=== PATIENT | female | born 1985 | race Caucasian/White ===

== ENCOUNTER 2021-05-19 13:53 | Outpatient (CLI) | payer OTHER, SELFPAY ==
--- NOTE | 2021-05-19 14:15 | US_ITS ---
WS: [id number] EARLY OBSTETRICAL ULTRASOUND (<14 WEEKS). HISTORY: R10.31 - Right lower quadrant pain COMPARISON: None available. Single intrauterine gestational sac is identified. Cardiac activity at 122 BPM. [place]-rump length raúl sures 0.4 cm which corresponds to a gestation of 6w1d. Normal-appearing yolk sac and amnion demonstra ayesha. No subchorionic hemorrhage. No free fluid. RIGHT ovary contains 2 cysts. The largest cyst measures 3.9 x 2.7 x 3.3 cm. No solid mass. Normal vas cularity. LEFT ovary is normal with normal vascularity. No solid mass. US/US OB <=14 wk fetus w transvag IMPRESSION: 1. Single intrauterine gestation of 6 weeks 1 day with an EDC of 01/11/2022. 2. RIGHT ovarian cysts. The largest cyst measures 3.9 x 2.7 x 3.3 cm. Normal v ascularity within the RIGHT ovary.
== END 2021-05-19 13:54 | disposition home or self-care (01) ==
PROVIDERS: PCP Pediatrics; Visit Provider Nurse Practitioner Women's Health
DX: R10.31 Right lower quadrant pain (principal); Z78.9 Other specified health status; N92.6 Irregular menstruation, unspecified; O09.91 Supervision of high risk pregnancy, unspecified, first trimester; Z3A.01 Less than 8 weeks gestation of pregnancy; N83.201 Unspecified ovarian cyst, right side
CPT/HCPCS: 76801; 76817; 81025; 84702; 85025; 86850; 86900

== ENCOUNTER 2021-06-10 10:21 | Emergency (ER) | payer OTHER, SELFPAY ==
--- NOTE | 2021-06-10 10:28 | W.ED.PREGNAN ---
HPI - General: Chief complaint: Vaginal Bleeding Stated complaint: 9 WEEKS PREG WITH SPOTTING, PAIN IN LOWER ABD Time Seen by Provider: 06/10/21 10:26 Source: patient Mode of arrival: ambulatory Limitations: no limitations History of Present Illness: HPI Narrative: Patient is a 35-year-old female at approximately 9 weeks here for concerns of some right lower abdominal/pelvic pain and vaginal spotting. Intrauterine has been confirmed through the women's health clinic. Patient states 2 days ago she slipped at work (no fall) and noticed a small amount of pain to her right lower pelvis following that. She states this morning she tried to get out of bed and had increasing discomfort and also noticed a small amount of bright red blood when she wiped. She has not noticed any clots/tissue or blood in the toilet or on her underwear. She does not complain of any pelvic or abdominal cramping. No vaginal discharge/odor. No leaking fluid. She states she did have sexual intercourse yesterday. MD Complaint: vaginal bleeding and other (R lower pelvic pain) Onset (ago): day(s) (initially began ) Pain Consistency: constant Location: pelvis Severity: mild Severity scale (1-10): 4 Exacerbating factors: movement and other (walking) Vaginal discharge: none Vaginal bleeding: light Patient : Yes Associated symptoms: Deny dysuria, headache(s), malaise, nausea or vomiting Review of Systems Const: Denies: fever(s), chills, body aches, fatigue or malaise Card: Denies: chest pain Resp: Denies: dyspnea GI: Denies: nausea, vomiting or diarrhea : Reports: pelvic pain; Denies: flank pain, difficulty voiding, dysuria, urinary frequency, urinary urgency or urinary hesitancy Musc: Denies: neck pain, back pain, extremity pain, extremity swelling, joint pain or joint swelling Skin/Breast: Denies: rash Neuro: Denies: headache(s) or dizziness PFSH ED PFSH: Medical History No pertinent past medical history neghx: thyroid, dvt/pe PCP: [facility] in [place] [facility] Surgical History History of appendectomy History of section 2005-- Emergent primary due to malpresentation; performed [facility] 2019: Repeat; performed in [facility] History of cholecystectomy Family History Brother Diabetes Hypertension Mother Diabetes Hypertension Father Diabetes Hypertension Social History Smoking and tobacco status: former smoker Quit status (tobacco): has quit using tobacco Second hand smoke exposure: No Alcohol intake: never Lives independently: Yes Household members: significant other Marital status: Single Current occupational status: employed Current occupation: [employer] History of recent travel: No Sexually active: Yes Current gender identity: Female Physical Exam Const: COMMON NORMALS: no acute distress, patient oriented x3, no limitations and alert GENERAL APPEARANCE: cooperative NUTRITIONAL APPEARANCE: obese ORIENTATION/CONSCIOUSNESS: Yes awake, Yes oriented to person, Yes oriented to place and Yes oriented to time HENMT: COMMON NORMALS: normocephalic and atraumatic HEAD & SCALP: normocephalic and atraumatic Resp: COMMON NORMALS: normal respiratory effort and clear to auscultation bilaterally AUSCULTATION: clear to auscultation bilaterally Cardio: COMMON NORMALS: regular rate and regular rhythm RATE: regular rate RHYTHM: regular rhythm GI: COMMON NORMALS: Normal to inspection, nondistended, normoactive bowel sounds present, Soft to palpation, No hepatosplenomegaly present and no masses PALPATION: Yes Soft to palpation, Yes Tenderness to palpation present (GI) (R lower pelvis) and Yes No hepatosplenomegaly present : COMMON NORMALS: Yes no CVA tenderness BLADDER/KIDNEY EXAM: Yes no CVA tenderness Back/Pelvis: COMMON NORMALS: no CVA tenderness Extremity: COMMON NORMALS: normal to inspection, no calf tenderness and no pedal edema Neuro: COMMON NORMALS: patient oriented x3 SENSORIUM/ORIENTATION: Yes alert, Yes oriented to person, Yes oriented to place and Yes oriented to time Skin: COMMON NORMALS: no rashes or lesions noted GENERAL SKIN EXAM: no rashes or lesions noted TRAUMA: no lacerations or abrasions Course Vital Signs: Vital signs: Vital Signs Temperature 98.3 F 06/10/21 11:05 Pulse Rate 97 06/10/21 11:05 Respiratory Rate 16 06/10/21 11:05 Blood Pressure 147/107 06/10/21 11:05 Pulse Oximetry 97 06/10/21 11:05 MDM - OB/Uterine Contractions MDM Narrative: Medical decision making narrative: Severe delay in care of obtaining blood work secondary to nursing shortage. Ultimately patient refuses these and states she wants to go home. Was able to collect a UA and this looks unremarkable. US showing live IUP at approximately 9 weeks. She does have a right ovarian cyst and a small subchorionic hemorrhage. Bleeding could be secondary to either one of these or could be secondary to sexual intercourse yesterday evening. Pain could be secondary to cyst or muscle strain given the history of pain starting following a slip at work. Recommend pelvic rest until told otherwise by OB. Recommend she contact their office Saturday for further evaluation. Return to ED precautions given. Lab Data: Labs: Lab Results 06/10/21 12:15 Urine Color Yellow (Yellow) Urine Appearance Hazy A (CLEAR) Urine pH 6.5 (5-7) Ur Specific Gravit y 1.020 (1.005-1.030) Urine Protein Neg (Negative) Urine Glucose (UA) 2+ H (Normal) Urine Ketones Negative (Negative) Urine Blood Neg (Negative) Urine Nitrate Negative (Negative) Urine Bilirubin Neg (Negative) Urine Urobilinogen Norm mg/dL mg/dL (Negative) Ur Leukocyte Nemo ase Negative (Negative) Urine RBC None /hpf /hpf (0-2) Urine WBC None /hpf /hpf (0-5) Ur Squamous Epith Cells 15-25 /hpf H /hpf (0-5) Ur Transition Epit h Cell 0-4 /hpf /hpf Amorphous Sediment 2+ /hpf /hpf Urine Bacteria Trace /hpf /hpf (NONE) Urine Mucus Trace /hpf /hpf Imaging Data^: US OB: Radiologist's impression: [facility] [address] [place] [address] Ultrasound Report Signed Patient: Verenice Silva Unit #: [id number] : 1985 Age/Sex: 35 / F ADM Date: 06/10/21 Loc: ER Room/Bed: Attending Dr: Ordering Provider/Ordering MD: Latasha Davison Date of Service: 06/10/21 Procedure(s): US OB <= 14 weeks fetus [id number] Accession Number(s): [id number] Report Number: [id number] PROCEDURE INFORMATION: Exam: US First Trimester, Transabdominal and US , Transvaginal Exam date and time: 06/10/2021 10:28 AM Age: 35 years old Clinical indication: Other: Bleeding/spotting, pain (rlq); Gestational age or lmp: 9 weeks 2 days; ; Prior surgery; Surgery date: 6+ months; Surgery type: 2 c-sections; Additional info: Bleeding/spotting/pain TECHNIQUE: Imaging protocol: Real-time transabdominal obstetrical ultrasound of the maternal pelvis and a first trimester , less than 14 weeks 0 days, with image documentation. Transvaginal imaging was used for better evaluation of the fetus, adnexa, and/or cervix. Total images: 28 COMPARISON: US OB <=14 wk fetus w transvag 05/19/2021 2:19 PM FINDINGS: Gestation: IUP with embryo visualized. Embryonic/ heart rate: heart rate of 195 bpm. Extra-embryonic membranes/Placenta: Small subchorionic hemorrhage noted anterior superiorly. Amniotic fluid: Amniotic fluid/chorionic fluid is normal for gestational age. BIOMETRY: Gestational age (AUA): [place]-rump length measured 2.66 cm corresponding to a 9 week 3 day gestational age. MATERNAL: Uterus: Unremarkable. Cervix: Unremarkable. Right adnexa: Right ovary measures 3.3 x 4.4 x 3.4 cm giving a 26.2 mL volume. Right ovary contains a 2.8 cm simple ovarian cyst and smaller 1.7 cm ovarian cyst. Vascularity demonstrated within the right ovary by color Doppler. Left adnexa: Left ovary not visualized. Intraperitoneal space: No intraperitoneal free fluid. US/US OB <= 14 weeks fetus [id number] IMPRESSION: 1. Viable IUP with estimated gestational age of 9 weeks 3 days and heart rate of 195 bpm. 2. Small subchorionic hemorrhage anterior superiorly Dictated By: Fuad Schmidt MD Signed By: Fuad Schmidt MD Signed Date/Time: 06/10/21 1221 DD/ 1220 Discharge Plan Discharge Patient Disposition: Home Clinical Impression: First trimester bleeding, Strain of muscle of pelvis Condition: Stable Prescriptions: No Action nifedipine [Procardia XL] 30 mg tablet extended release 24hr 30 mg PO DAILY Qty: 30 RF: 6 metformin 500 mg tablet 500 mg PO BID MDD see pharmacy comment RF: 0 cetirizine [Allergy Relief (cetirizine)] 10 mg tablet 10 mg PO DAILY RF: 0 (DME) blood-glucose meter [Blood Glucose Monitoring] Kit See Rx Instructions .Route Qty: 1 RF: 0 (DME) lancets-blood glucose strips 30 gauge combo pack See Rx Instructions .Route Qty: 1999 RF: 5 Discharge Orders: Discharge ED (Routine); Ordered 06/10/21 Ordered By: Latasha Davison Referrals: Bella Sarkar MD [Primary Care Provider] - Activity Restrictions/Additional Instructions: As we discussed ultrasound showed a live intrauterine at approximately 9 weeks. There was a small subchorionic hematoma present. No sexual activity until cleared by your seam taper machine. Please contact their office Saturday for further follow-up. You need to return to the emergency department for worsening pain, vaginal bleeding, fevers, or any other concerns you may have. Coding Level of Care Code ED Acid Adjuster for Chg Fwd Exam Comprehensive
[2021-06-10 11:05] VITALS: BP 147/107; PULSE 97; RESP 16; TEMP 36.8; O2SAT 97; BMI 42.3
[2021-06-10 12:36] LABS: Add Urine Microscopic? YES; Bilirubin Urine Neg (Negative); Blood Urine Neg (Negative); Glucose Urine UA 2+ (Normal); Ketones Urine Negative (Negative); Leukocyte Esterase Urine Negative (Negative); Nitrate Urine Negative (Negative); Protein Urine Neg (Negative); Urine Appearance Hazy (CLEAR); Urine Color Yellow (Yellow); Urobilinogen Urine Norm (Negative); pH Urine 6.5 (5-7)
[2021-06-10 12:41] LABS: Squamous Epithelial Cell Urine 15-25 /hpf (0-5); Transitional Epi Cells Urine 0-4 /hpf
[2021-06-10 12:42] LABS: Amorphous Sediment Urine 2+ /hpf; Bacteria Urine TRACE /hpf; Mucus Urine TRACE /hpf
[2021-06-10 12:43] LABS: Add Urine Culture? No
[2021-06-10 14:04] VITALS: PULSE 89; RESP 18; O2SAT 97
== END 2021-06-10 14:00 | disposition home or self-care (01) ==
PROVIDERS: Emergency Provider Physician Assistant; PCP Obstetrics & Gynecology
DX: O20.9 Hemorrhage in early pregnancy, unspecified (principal); O9A.211 Injury, poisoning and certain other consequences of external causes complicating pregnancy, first trimester; S39.013A Strain of muscle, fascia and tendon of pelvis, initial encounter; Z3A.09 9 weeks gestation of pregnancy; W01.0XXA Fall on same level from slipping, tripping and stumbling without subsequent striking against object, initial encounter; Z87.891 Personal history of nicotine dependence
CPT/HCPCS: 76801; 81001; 99282

== ENCOUNTER → 2021-06-16 13:44 | Outpatient (BNVA) | payer OTHER, SELFPAY | PROVIDERS: PCP Obstetrics & Gynecology; Visit Provider Nurse Practitioner Women's Health | DX: O09.891 Supervision of other high risk pregnancies, first trimester; O24.111 Pre-existing type 2 diabetes mellitus, in pregnancy, first trimester; O10.911 Unspecified pre-existing hypertension complicating pregnancy, first trimester; O09.291 Supervision of pregnancy with other poor reproductive or obstetric history, first trimester; O34.219 Maternal care for unspecified type scar from previous cesarean delivery; N85.8 Other specified noninflammatory disorders of uterus; Z3A.10 10 weeks gestation of pregnancy | CPT/HCPCS: 83036; 84315; 84443; 86592; 86762; 86787; 86803; 87086; 87340; 87806 ==

== ENCOUNTER → 2021-06-30 11:07 | Outpatient (BNVA) | payer OTHER, SELFPAY | PROVIDERS: PCP Obstetrics & Gynecology; Visit Provider Obstetrics & Gynecology | DX: O09.899 Supervision of other high risk pregnancies, unspecified trimester (principal); E11.9 Type 2 diabetes mellitus without complications; O34.219 Maternal care for unspecified type scar from previous cesarean delivery; I10 Essential (primary) hypertension; Z3A.00 Weeks of gestation of pregnancy not specified; Z87.59 Personal history of other complications of pregnancy, childbirth and the puerperium | CPT/HCPCS: 84315; 87491; 87591; 87624; 87661 ==

== ENCOUNTER → 2021-07-14 15:48 | Outpatient (BNVA) | payer OTHER, SELFPAY | PROVIDERS: PCP Obstetrics & Gynecology; Visit Provider Obstetrics & Gynecology | DX: O09.899 Supervision of other high risk pregnancies, unspecified trimester (principal); G47.00 Insomnia, unspecified | CPT/HCPCS: 84315; 84443 ==

== ENCOUNTER → 2021-08-07 12:00 | Outpatient (BNVA) | payer MEDICAID, SELFPAY | PROVIDERS: PCP Obstetrics & Gynecology; Visit Provider Obstetrics & Gynecology | DX: O09.899 Supervision of other high risk pregnancies, unspecified trimester (principal) | CPT/HCPCS: 84315; 87086 ==

== ENCOUNTER 2021-10-08 18:15 | Outpatient (CLI) | payer BC, MEDICAID, SELFPAY ==
[2021-10-08 18:25] VITALS: BMI 46.4
[2021-10-08 18:39] VITALS: BP 135/96; PULSE 85
[2021-10-08 19:22] VITALS: BP 135/80; PULSE 81
[2021-10-08 19:35] LABS: Basophils % 0.4 %; Eosinophils # 0.3 10^3/uL (0.0-0.8); Eosinophils % 2.5 %; Hematocrit 34.1 % (37.0-47.0); Hemoglobin 11.5 g/dL (11.5-15.3); Lymphocytes # 2.7 10^3/uL (0.8-4.8); Lymphocytes % 26.9 %; Mean Corpuscular HGB Conc 33.7 g/dL (30.0-36.0); Mean Corpuscular Volume 85.9 fl (81-99); Mean Platelet Volume 9.5 fL (7.4-10.4); Monocytes # 0.7 10^3/uL (0.2-0.9); Neutrophils # 6.35 10^3/uL (1.8-7.7); Neutrophils % 62.7 %; Nucleated Red Blood Cells % 0 %; Platelet Count 249 10^3/cmm (130-400); Red Blood Count 3.97 10^6/uL (4.1-5.3); White Blood Count 10.1 10^3/uL (4.0-10.0)
[2021-10-08 19:40] LABS: Alanine Aminotransferase 7 U/L (0-33); Albumin Level 3.8 g/dL (3.5-5.2); Alkaline Phosphatase 53 IU/L (35-105); Anion Gap 16.5 (5-19); Aspartate Amino Transferase 10 U/L (0-32); Blood Urea Nitrogen 9 mg/dL (6-20); Calcium 8.4 mg/dL (8.5-10.5); Carbon Dioxide 21 mmol/L (22-29); Chloride 102 mmol/L (98-107); Globulin 2.5 g/dL (1.3-4.6); Glomerular Filtration Rate 140.4 mL/min (90-130); Glucose 83 mg/dL (65-115); Osmolality Calculated 280 mOsm/kg (285-295); Potassium 3.5 mmol/L (3.5-5.1); Sodium 136 mmol/L (136-145); Total Bilirubin 0.2 mg/dL (0.15-1.2); Total Protein 6.3 g/dL (6.6-8.7)
[2021-10-08 19:49] LABS: Bilirubin Urine Neg (Negative); Blood Urine Neg (Negative); Glucose Urine UA Norm (Normal); Ketones Urine Negative (Negative); Leukocyte Esterase Urine Negative (Negative); Nitrate Urine Negative (Negative); Protein Urine Neg (Negative); RBC Urine 0-4 /hpf (0-2); Specific Gravity, Urine 1.015 (1.005-1.030); Squamous Epithelial Cell Urine 0-4 /hpf (0-5); Urine Appearance Clear (CLEAR); Urine Color Straw (Yellow); Urobilinogen Urine Norm (Negative); WBC Urine 0-4 /hpf (0-5); pH Urine 6 (5-7)
[2021-10-08 19:50] LABS: Add Urine Culture? No; Bacteria Urine TRACE /hpf
[2021-10-08] MEDS: acetaminophen 500 mg Tablet 1000 MG PO (20:03)
[2021-10-08 20:05] VITALS: TEMP 35.9
[2021-10-08 20:06] VITALS: BP 175/98; PULSE 78
[2021-10-08 20:07] VITALS: BP 145/78; PULSE 81
[2021-10-08 20:15] VITALS: RESP 16
== END 2021-10-08 20:22 | disposition home or self-care (01) ==
LOC: OPOB 18:18 → OBGYN 18:20
PROVIDERS: PCP Obstetrics & Gynecology; Visit Provider Obstetrics & Gynecology
DX: O26.899 Other specified pregnancy related conditions, unspecified trimester (principal); Z3A.00 Weeks of gestation of pregnancy not specified; R10.9 Unspecified abdominal pain
CPT/HCPCS: 36415; 59025; 80053; 81001; 85025; 99211

== ENCOUNTER 2021-10-16 12:11 | Outpatient (CLI) | payer MEDICAID, SELFPAY ==
--- NOTE | 2021-10-16 12:45 | US_ITS ---
WS: [id number] INDICATION: Distal thigh lump TECHNIQUE: Ultrasound soft tissue area of concern FINDINGS: Ultrasound soft tissue area of concern anterior distal thigh. Normal underlying soft tissue . No evidence of cystic or solid lesion. No suspicious abnormalities in the area of concern. US/US soft tissue/extremity [id number] IMPRESSION: No suspicious abnormalities in the area of concern.
== END 2021-10-16 12:12 | disposition home or self-care (01) ==
LOC: RAD 12:13
PROVIDERS: PCP Obstetrics & Gynecology; Visit Provider Obstetrics & Gynecology
DX: R22.42 Localized swelling, mass and lump, left lower limb (principal)
CPT/HCPCS: 76882

== ENCOUNTER → 2021-10-26 08:17 | Outpatient (BNVA) | payer MEDICAID, SELFPAY | PROVIDERS: PCP Obstetrics & Gynecology; Visit Provider Obstetrics & Gynecology | DX: O09.899 Supervision of other high risk pregnancies, unspecified trimester (principal); Z3A.00 Weeks of gestation of pregnancy not specified | CPT/HCPCS: 84315; 84443; 85025; 86850; 87086 ==

== ENCOUNTER 2021-11-03 21:54 | Outpatient (CLI) | payer MEDICAID, SELFPAY ==
[2021-11-03] VITALS (18 sets, daily range): BP systolic 137–149; BP diastolic 81–95; PULSE 93–114; RESP 16–18; TEMP 36; O2SAT 95–97; BMI 48.1
[2021-11-03 23:01] LABS: Glucose Point of Care 164 mg/dL (70-110)
[2021-11-03] MEDS: acetaminophen 500 mg Tablet 1000 MG PO (23:05)
--- NOTE | 2021-11-03 23:07 | PC.NURSE ---
This nurse discussed with patient that she should continue to follow the guidelines for her BP as directed by Dr. Sarkar, however if she is concerned at all she should come and be assessed. Instructed patient that if her missed appointment had not been rescheduled that she should call the office to reschedule and to keep her specialist appointments.
== END 2021-11-03 23:20 | disposition home or self-care (01) ==
LOC: OPOB 21:55 → OBGYN 21:56
PROVIDERS: PCP Obstetrics & Gynecology; Visit Provider Obstetrics & Gynecology
DX: O16.9 Unspecified maternal hypertension, unspecified trimester (principal); Z3A.00 Weeks of gestation of pregnancy not specified; R10.9 Unspecified abdominal pain
CPT/HCPCS: 36416; 59025; 82962; 99211

== ENCOUNTER 2021-11-04 18:45 | Outpatient (CLI) | payer MEDICAID, SELFPAY ==
[2021-11-04] VITALS (11 sets, daily range): BP systolic 126–160; BP diastolic 72–116; PULSE 93–102; RESP 16–18; BMI 47.6
[2021-11-04] MEDS: ketorolac 30 mg/mL INJ IVP (19:55)
[2021-11-04 20:11] LABS: Add Urine Microscopic? NO; Charge for UA Resulting for Rev
[2021-11-04 20:15] LABS: Basophils % 0.3 %; Eosinophils # 0.2 10^3/uL (0.0-0.8); Eosinophils % 1.8 %; Hematocrit 35.2 % (37.0-47.0); Hemoglobin 11.7 g/dL (11.5-15.3); Lymphocytes # 2.9 10^3/uL (0.8-4.8); Lymphocytes % 24.3 %; Mean Corpuscular HGB Conc 33.2 g/dL (30.0-36.0); Mean Corpuscular Hemoglobin 28.5 pg (28.0-34.0); Mean Corpuscular Volume 85.6 fl (81-99); Mean Platelet Volume 9.7 fL (7.4-10.4); Monocytes # 0.8 10^3/uL (0.2-0.9); Monocytes % 6.6 %; Neutrophils # 7.82 10^3/uL (1.8-7.7); Neutrophils % 66.5 %; Nucleated Red Blood Cells % 0 %; Platelet Count 225 10^3/cmm (130-400); Red Blood Count 4.11 10^6/uL (4.1-5.3); White Blood Count 11.8 10^3/uL (4.0-10.0)
[2021-11-04 20:17] LABS: Bilirubin Urine Neg (Negative); Blood Urine Neg (Negative); Glucose Urine UA Norm (Normal); Ketones Urine Negative (Negative); Nitrate Urine Negative (Negative); Protein Urine Neg (Negative); Specific Gravity, Urine 1.005 (1.005-1.030); Urine Appearance Clear (CLEAR); Urine Color Straw (Yellow); pH Urine 7 (5-7)
[2021-11-04 20:18] LABS: Leukocyte Esterase Urine Negative (Negative); Urobilinogen Urine Norm (Negative)
[2021-11-04 20:34] LABS: Urine Creatinine 13 mg/dL (28-217); Urine Protein Random 4 mg/dL
[2021-11-04 20:38] LABS: Alanine Aminotransferase < 5 U/L (0-33); Albumin Level 3.9 g/dL (3.5-5.2); Alkaline Phosphatase 48 IU/L (35-105); Anion Gap 13.7 (5-19); Aspartate Amino Transferase 10 U/L (0-32); Blood Urea Nitrogen 13 mg/dL (6-20); Carbon Dioxide 21 mmol/L (22-29); Chloride 102 mmol/L (98-107); Globulin 3.2 g/dL (1.3-4.6); Glomerular Filtration Rate 181.6 mL/min (90-130); Glucose 114 mg/dL (65-115); Osmolality Calculated 277 mOsm/kg (285-295); Potassium 3.7 mmol/L (3.5-5.1); Sodium 133 mmol/L (136-145); Total Bilirubin 0.2 mg/dL (0.15-1.2); Total Protein 7.1 g/dL (6.6-8.7)
[2021-11-04 20:40] LABS: UPRO/UCREAT Ratio 0.31 mg/mg CR
== END 2021-11-04 21:24 | disposition home or self-care (01) ==
LOC: OPOB 18:48 → OBGYN 18:50
PROVIDERS: PCP Obstetrics & Gynecology; Visit Provider Obstetrics & Gynecology
DX: O16.9 Unspecified maternal hypertension, unspecified trimester (principal); Z3A.00 Weeks of gestation of pregnancy not specified
CPT/HCPCS: 36415; 59025; 80053; 81003; 82570; 84156; 84550; 85025; 99211; J1885

== ENCOUNTER 2021-11-06 12:29 | Outpatient (CLI) | payer MEDICAID, SELFPAY ==
[2021-11-06 13:01] LABS: Total Volume, Urine 2775 mL
[2021-11-06 13:19] LABS: Urine Total Protein 7.6 mg/24HR (0-150); Urine Total Protein 24 Hour 210.9 mg/dL (0-150)
== END 2021-11-06 12:30 | disposition home or self-care (01) ==
LOC: OPOB 12:30
PROVIDERS: PCP Obstetrics & Gynecology; Visit Provider Obstetrics & Gynecology
DX: O26.899 Other specified pregnancy related conditions, unspecified trimester (principal); Z3A.00 Weeks of gestation of pregnancy not specified
CPT/HCPCS: 84156; 84315

== ENCOUNTER 2021-11-14 16:26 | Outpatient (CLI) | payer BC, MEDICAID, SELFPAY ==
[2021-11-14] VITALS (15 sets, daily range): BP systolic 141–190; BP diastolic 82–112; PULSE 84–100; RESP 16–17; TEMP 36.2; BMI 47.1
[2021-11-14 17:49] LABS: Add Urine Microscopic? NO; Charge for UA Resulting for Rev
[2021-11-14] MEDS: NIFEdipine 10 mg Capsule 60 MG PO (17:52)
[2021-11-14 17:57] LABS: Basophils % 0.4 %; Eosinophils # 0.2 10^3/uL (0.0-0.8); Eosinophils % 1.7 %; Hematocrit 34.7 % (37.0-47.0); Hemoglobin 11.4 g/dL (11.5-15.3); Lymphocytes # 2.2 10^3/uL (0.8-4.8); Lymphocytes % 21.9 %; Mean Corpuscular HGB Conc 32.9 g/dL (30.0-36.0); Mean Corpuscular Hemoglobin 28.2 pg (28.0-34.0); Mean Corpuscular Volume 85.9 fl (81-99); Mean Platelet Volume 9.9 fL (7.4-10.4); Monocytes # 0.6 10^3/uL (0.2-0.9); Monocytes % 6.1 %; Neutrophils # 6.79 10^3/uL (1.8-7.7); Neutrophils % 69.4 %; Nucleated Red Blood Cells % 0 %; Platelet Count 205 10^3/cmm (130-400); Red Blood Count 4.04 10^6/uL (4.1-5.3); Red Cell Distribution Width 12.8 % (12.1-15.1); White Blood Count 9.8 10^3/uL (4.0-10.0)
[2021-11-14 17:59] LABS: Bilirubin Urine Neg (Negative); Blood Urine Neg (Negative); Glucose Urine UA Norm (Normal); Ketones Urine Negative (Negative); Leukocyte Esterase Urine Negative (Negative); Nitrate Urine Negative (Negative); Protein Urine Neg (Negative); Specific Gravity, Urine 1.015 (1.005-1.030); Urine Appearance Clear (CLEAR); Urine Color Yellow (Yellow); Urobilinogen Urine Neg (Negative); pH Urine 6 (5-7)
[2021-11-14 18:19] LABS: Urine Creatinine 58 mg/dL (28-217); Urine Protein Random 6 mg/dL
[2021-11-14 18:31] LABS: Alanine Aminotransferase 7 U/L (0-33); Albumin Level 3.7 g/dL (3.5-5.2); Alkaline Phosphatase 51 IU/L (35-105); Anion Gap 15.8 (5-19); Aspartate Amino Transferase 10 U/L (0-32); Blood Urea Nitrogen 11 mg/dL (6-20); Calcium 9.2 mg/dL (8.5-10.5); Carbon Dioxide 20 mmol/L (22-29); Chloride 105 mmol/L (98-107); Globulin 3.3 g/dL (1.3-4.6); Glomerular Filtration Rate 113.8 mL/min (90-130); Glucose 173 mg/dL (65-115); Osmolality Calculated 288 mOsm/kg (285-295); Potassium 3.8 mmol/L (3.5-5.1); Sodium 137 mmol/L (136-145); Total Bilirubin 0.2 mg/dL (0.15-1.2); Uric Acid 3.4 mg/dL (2.4-5.7)
== END 2021-11-14 20:03 | disposition home or self-care (01) ==
LOC: OPOB 16:43 → OBGYN 16:45
PROVIDERS: PCP Obstetrics & Gynecology; Visit Provider Obstetrics & Gynecology
DX: O26.899 Other specified pregnancy related conditions, unspecified trimester (principal); Z3A.00 Weeks of gestation of pregnancy not specified; R51.9 Headache, unspecified; R42 Dizziness and giddiness; H53.8 Other visual disturbances
CPT/HCPCS: 36415; 59025; 80053; 81003; 82570; 84156; 84550; 85025; 99211

== ENCOUNTER → 2021-11-17 08:47 | Outpatient (BNVA) | payer BC, MEDICAID, SELFPAY | PROVIDERS: PCP Obstetrics & Gynecology; Visit Provider Obstetrics & Gynecology | DX: O09.899 Supervision of other high risk pregnancies, unspecified trimester (principal); Z3A.00 Weeks of gestation of pregnancy not specified | CPT/HCPCS: 81000 ==

== ENCOUNTER 2021-11-30 16:05 | Outpatient (CLI) | payer BC, MEDICAID, SELFPAY ==
[2021-11-30] VITALS (10 sets, daily range): BP systolic 146–182; BP diastolic 88–94; PULSE 93–101; RESP 18; BMI 49.2
[2021-11-30 17:08] LABS: Basophils % 0.2 %; Eosinophils # 0.2 10^3/uL (0.0-0.8); Eosinophils % 2.4 %; Hematocrit 35.6 % (37.0-47.0); Hemoglobin 11.2 g/dL (11.5-15.3); Lymphocytes # 2.3 10^3/uL (0.8-4.8); Lymphocytes % 22.6 %; Mean Corpuscular HGB Conc 31.5 g/dL (30.0-36.0); Mean Corpuscular Hemoglobin 28.2 pg (28.0-34.0); Mean Corpuscular Volume 89.7 fl (81-99); Mean Platelet Volume 10.5 fL (7.4-10.4); Monocytes # 0.7 10^3/uL (0.2-0.9); Monocytes % 6.6 %; Neutrophils # 6.77 10^3/uL (1.8-7.7); Neutrophils % 67.7 %; Nucleated Red Blood Cells % 0 %; Platelet Count 225 10^3/cmm (130-400); Red Blood Count 3.97 10^6/uL (4.1-5.3); Red Cell Distribution Width 12.8 % (12.1-15.1)
[2021-11-30 17:31] LABS: Bacteria Urine 1+ /hpf; Bilirubin Urine Neg (Negative); Blood Urine Neg (Negative); Glucose Urine UA 4+ (Normal); Ketones Urine Negative (Negative); Leukocyte Esterase Urine Negative (Negative); Nitrate Urine Negative (Negative); Protein Urine Neg (Negative); RBC Urine 0-4 /hpf (0-2); Squamous Epithelial Cell Urine 40-55 /hpf (0-5); Urine Appearance Clear (CLEAR); Urine Color Yellow (Yellow); Urobilinogen Urine Norm (Negative); WBC Urine 0-4 /hpf (0-5); pH Urine 7 (5-7)
[2021-11-30 18:04] LABS: Alanine Aminotransferase < 5 U/L (0-33); Albumin Level 3.6 g/dL (3.5-5.2); Alkaline Phosphatase 56 IU/L (35-105); Aspartate Amino Transferase 13 U/L (0-32); Blood Urea Nitrogen 10 mg/dL (6-20); Calcium 9.4 mg/dL (8.5-10.5); Carbon Dioxide 20 mmol/L (22-29); Chloride 106 mmol/L (98-107); Globulin 3.4 g/dL (1.3-4.6); Glomerular Filtration Rate 140.4 mL/min (90-130); Glucose 159 mg/dL (65-115); Osmolality Calculated 290 mOsm/kg (285-295); Sodium 139 mmol/L (136-145); Total Bilirubin 0.2 mg/dL (0.15-1.2); Uric Acid 3.4 mg/dL (2.4-5.7)
[2021-11-30 18:07] LABS: Anion Gap 17.3 (5-19); Potassium 4.3 mmol/L (3.5-5.1)
[2021-11-30 18:19] LABS: Urine Creatinine 19 mg/dL (28-217); Urine Protein Random 4 mg/dL
[2021-11-30 18:21] LABS: UPRO/UCREAT Ratio 0.21 mg/mg CR
== END 2021-11-30 18:55 | disposition home or self-care (01) ==
LOC: OPOB 16:10 → OBGYN 16:13
PROVIDERS: Absent Provider Obstetrics & Gynecology; PCP Obstetrics & Gynecology; Visit Provider Obstetrics & Gynecology
DX: O26.00 Excessive weight gain in pregnancy, unspecified trimester (principal); Z3A.00 Weeks of gestation of pregnancy not specified; R60.9 Edema, unspecified; R10.11 Right upper quadrant pain
CPT/HCPCS: 36415; 36416; 59025; 80053; 81001; 82570; 82962; 84156; 84315; 84550; 85025; 99211

== ENCOUNTER 2021-12-09 15:40 | Outpatient (CLI) | payer BC, MEDICAID, SELFPAY ==
[2021-12-09] VITALS (8 sets, daily range): BP systolic 140–189; BP diastolic 72–111; PULSE 85–103; RESP 16; BMI 49.2
[2021-12-09] MEDS: labetalol 200 mg Tablet PO (16:40)
[2021-12-09 16:52] LABS: Basophils # 0.1 10^3/uL (0.0-0.1); Basophils % 0.5 %; Eosinophils # 0.2 10^3/uL (0.0-0.8); Eosinophils % 1.6 %; Hematocrit 32.3 % (37.0-47.0); Hemoglobin 10.5 g/dL (11.5-15.3); Lymphocytes # 1.9 10^3/uL (0.8-4.8); Lymphocytes % 19.2 %; Mean Corpuscular HGB Conc 32.5 g/dL (30.0-36.0); Mean Corpuscular Hemoglobin 27.3 pg (28.0-34.0); Mean Corpuscular Volume 84.1 fl (81-99); Mean Platelet Volume 10.2 fL (7.4-10.4); Monocytes # 0.7 10^3/uL (0.2-0.9); Monocytes % 6.4 %; Neutrophils # 7.23 10^3/uL (1.8-7.7); Neutrophils % 71.6 %; Nucleated Red Blood Cells % 0 %; Platelet Count 208 10^3/cmm (130-400); Red Blood Count 3.84 10^6/uL (4.1-5.3); Red Cell Distribution Width 13.1 % (12.1-15.1); White Blood Count 10.1 10^3/uL (4.0-10.0)
[2021-12-09 17:07] LABS: Add Urine Culture? No; Bacteria Urine 1+ /hpf; Bilirubin Urine Neg (Negative); Blood Urine Neg (Negative); Glucose Urine UA Norm (Normal); Ketones Urine Negative (Negative); Leukocyte Esterase Urine Negative (Negative); Nitrate Urine Negative (Negative); Protein Urine Neg (Negative); Squamous Epithelial Cell Urine 0-4 /hpf (0-5); Urine Appearance Clear (CLEAR); Urine Color Straw (Yellow); Urobilinogen Urine Norm (Negative); pH Urine 6 (5-7)
[2021-12-09 17:34] LABS: Alanine Aminotransferase 7 U/L (0-33); Albumin Level 3.6 g/dL (3.5-5.2); Alkaline Phosphatase 56 IU/L (35-105); Aspartate Amino Transferase 11 U/L (0-32); Blood Urea Nitrogen 16 mg/dL (6-20); Carbon Dioxide 21 mmol/L (22-29); Chloride 102 mmol/L (98-107); Globulin 3.1 g/dL (1.3-4.6); Glomerular Filtration Rate 113.8 mL/min (90-130); Glucose 100 mg/dL (65-115); Osmolality Calculated 281 mOsm/kg (285-295); Sodium 135 mmol/L (136-145); Total Bilirubin 0.2 mg/dL (0.15-1.2); Total Protein 6.7 g/dL (6.6-8.7); Uric Acid 4.4 mg/dL (2.4-5.7)
[2021-12-09 17:45] LABS: Urine Creatinine 24 mg/dL (28-217); Urine Protein Random 4 mg/dL
[2021-12-09 17:48] LABS: UPRO/UCREAT Ratio 0.17 mg/mg CR
== END 2021-12-09 18:08 | disposition home or self-care (01) ==
LOC: OPOB 15:43 → OBGYN 15:45
PROVIDERS: PCP Obstetrics & Gynecology; Visit Provider Obstetrics & Gynecology
DX: O16.9 Unspecified maternal hypertension, unspecified trimester (principal); Z3A.00 Weeks of gestation of pregnancy not specified
CPT/HCPCS: 36415; 59025; 80053; 81001; 82570; 84156; 84550; 85025; 99211

== ENCOUNTER → 2021-12-11 13:36 | Outpatient (BNVA) | payer BC, MEDICAID, SELFPAY | PROVIDERS: PCP Obstetrics & Gynecology; Visit Provider Obstetrics & Gynecology | DX: O09.899 Supervision of other high risk pregnancies, unspecified trimester (principal); Z3A.00 Weeks of gestation of pregnancy not specified | CPT/HCPCS: 81000; 87081 ==

== ENCOUNTER 2021-12-12 18:38 | Inpatient (IN) | payer BC, MEDICAID, SELFPAY ==
[2021-12-12] VITALS (38 sets, daily range): BP systolic 129–205; BP diastolic 74–124; PULSE 82–96; RESP 16–29; TEMP 36.6–36.7; O2SAT 93–99; BMI 50.0
[2021-12-12] MEDS: labetalol 5 mg/mL SDV 20mL 20 MG IVP (18:07)
[2021-12-12] MEDS: betamethasone susp 6 mg/mL 5 mL 12 MG IM (18:07)
--- NOTE | 2021-12-12 18:36 | PM.OPHPUD ---
Labor & Delivery H&P Update Date of Procedure: December 12, 2021 Date H&P Performed: 12/11/21 H&P update information: I have reviewed H&P completed within last 30 days, I have examined patient prior to procedure and Changes to prior documentation as noted here Changes to previous documentation: The patient presented to labor and delivery with complaints of severe pelvic pain. Her blood pressure was 180's/120's. She has known hypertension, but has been fairly controlled recently. She denied any headache or RUQ pain. She was mostly concerned with the suprapubic pain. She also appeared to be having contractions. Preeclampsia labs were sent. She was given emergency treatment with IV labetolol and started on Magnesium sulfate. Will perform a repeat Admission Diagnosis: at 35 weeks, 5 days. Preop diagnosis: c section Primary indication for procedure: severe preeclampsia Planned procedure: repeat Related Problem List Diagnoses (1) History of delivery: (2) Rh negative state in antepartum period: (3) Obesity affecting : (4) Rubella non-immune status, antepartum: (5) Chronic hypertension: (6) Type 2 diabetes mellitus: (7) History of pre-eclampsia: (8) Previous delivery, antepartum: (9) Supervision of other high-risk :
[2021-12-12] MEDS: labetalol 5 mg/mL SDV 20mL 40 MG IVP (18:37)
[2021-12-12] MEDS: lactated ringers 1,000 ML 999 ML IV (18:45)
[2021-12-12 18:50] LABS: Add Urine Microscopic? NO; Charge for UA Resulting for Rev
[2021-12-12 18:51] LABS: Basophils # 0.1 10^3/uL (0.0-0.1); Basophils % 0.6 %; Eosinophils # 0.2 10^3/uL (0.0-0.8); Eosinophils % 2.3 %; Hematocrit 34.4 % (37.0-47.0); Hemoglobin 11.1 g/dL (11.5-15.3); Lymphocytes # 2.3 10^3/uL (0.8-4.8); Lymphocytes % 22.4 %; Mean Corpuscular HGB Conc 32.3 g/dL (30.0-36.0); Mean Corpuscular Hemoglobin 27.6 pg (28.0-34.0); Mean Corpuscular Volume 85.6 fl (81-99); Monocytes # 0.8 10^3/uL (0.2-0.9); Monocytes % 7.7 %; Neutrophils # 6.75 10^3/uL (1.8-7.7); Neutrophils % 66.5 %; Nucleated Red Blood Cells % 0 %; Platelet Count 221 10^3/cmm (130-400); Red Blood Count 4.02 10^6/uL (4.1-5.3); White Blood Count 10.1 10^3/uL (4.0-10.0)
[2021-12-12 18:53] LABS: Bilirubin Urine Neg (Negative); Blood Urine Neg (Negative); Glucose Urine UA Norm (Normal); Ketones Urine Negative (Negative); Leukocyte Esterase Urine Negative (Negative); Nitrate Urine Negative (Negative); Protein Urine Neg (Negative); Specific Gravity, Urine 1.015 (1.005-1.030); Urine Appearance Clear (CLEAR); Urine Color Yellow (Yellow); Urobilinogen Urine Norm (Negative); pH Urine 6.5 (5-7)
[2021-12-12] MEDS: magnesium sulfate premix 4 GM/100 ML PREMIX IV (18:56)
[2021-12-12] MEDS: labetalol 5 mg/mL SDV 20mL 80 MG IVP (18:58)
[2021-12-12] MEDS: citric acid-sodium citrate 30 mL UDC PO (19:03)
[2021-12-12] MEDS: metoclopramide 5 mg/mL SDV 2 mL 10 MG IVP (19:03)
[2021-12-12] MEDS: famotidine 20 mg/2 mL INJ IVP (19:03)
[2021-12-12 19:09] LABS: Alanine Aminotransferase < 5 U/L (0-33); Albumin Level 3.7 g/dL (3.5-5.2); Alkaline Phosphatase 70 IU/L (35-105); Anion Gap 15.9 (5-19); Aspartate Amino Transferase 14 U/L (0-32); Blood Urea Nitrogen 15 mg/dL (6-20); Calcium 8.9 mg/dL (8.5-10.5); Carbon Dioxide 19 mmol/L (22-29); Chloride 106 mmol/L (98-107); Globulin 2.9 g/dL (1.3-4.6); Glomerular Filtration Rate 140.4 mL/min (90-130); Glucose 105 mg/dL (65-115); Osmolality Calculated 285 mOsm/kg (285-295); Potassium 3.9 mmol/L (3.5-5.1); Sodium 137 mmol/L (136-145); Total Bilirubin 0.2 mg/dL (0.15-1.2); Total Protein 6.6 g/dL (6.6-8.7); Uric Acid 4.2 mg/dL (2.4-5.7)
[2021-12-12] MEDS: magnesium sulfate premix 20 GM/500 ML BAG IV (19:16)
[2021-12-12 19:17] LABS: Urine Creatinine 37 mg/dL (28-217); Urine Protein Random 6 mg/dL
[2021-12-12 19:19] LABS: UPRO/UCREAT Ratio 0.16 mg/mg CR
--- NOTE | 2021-12-12 19:56 | P.ANESASSM_ITS ---
Pre-Anesthetic Assessment Height/Weight: Height 1.68 m Weight 140.614 kg Pulse Resp BP Pulse Ox 95 29 H 202/120 98 12/12/21 19:08 12/12/21 17:37 12/12/21 19:02 12/12/21 19:08 Preop Diagnosis: c section C/S Familial anesthetic complications: None Was Beta Justen taken within 24 hours: Yes Was Clonidine taken within 24 hours: N/A Social No alcohol and No tobacco Exam alert, oriented x 3, clear to auscultation bilaterally and regular rate & rhythm Airway Submandibular: within normal limits Cervical ROM: within normal limits Mallampati: Class II Dentition: chipped CV/HEM Hypertension Metabolic Diabetes Mellitus and Morbid Obesity Anesthetic Plan ASA status: 2E Anesthesia: Regional (specify below) (SAB) Medications/Allergies Home Medications Medication Instructions Recorded Confirmed Last Taken Type blood-glucose meter (Blood Glucose #1 ea 05/19/21 12/11/21 Unknown Rx Monitoring) cetirizine 10 mg tablet (Allergy 10 mg PO DAILY 05/19/21 12/11/21 11/29/21 18:00 History Relief (cetirizine)) lancets 30 gauge and blood glucose #2000 ea 05/19/21 12/11/21 Unknown Rx strips combo pack aspirin 81 mg tablet,delayed 81 mg PO DAILY 06/30/21 12/11/21 11/30/21 08:00 History release (Adult Low Dose Aspirin) pwjpcwo-hoqduuxqj-xgnj tablet 1 tab PO DAILY tab 06/30/21 12/11/21 11/30/21 08:00 History metformin 500 mg tablet 500 mg PO BID 07/14/21 12/11/21 11/30/21 08:00 History fdnwkjesqk-yztbbrrhufzwd-luptlegc 1 cap PO Q6H PRN #30 cap 11/06/21 12/11/21 11/29/21 18:00 Rx 50 mg-300 mg-40 mg capsule (Fioricet) insulin detemir U-100 100 unit/mL 75 unit SUBCUT DAILY ml 11/14/21 12/11/21 11/30/21 08:00 History (3 mL) subcutaneous pen (Levemir FlexTouch U-100 Insulin) insulin detemir U-100 100 unit/mL 80 unit SUBCUT BEDTIME ml 11/14/21 12/11/21 11/29/21 20:00 History (3 mL) subcutaneous pen (Levemir FlexTouch U-100 Insulin) insulin aspart U-100 100 unit/mL 10 unit SUBCUT TID 11/27/21 12/11/21 11/30/21 15:00 History (3 mL) subcutaneous pen (Novolog Flexpen U-100 Insulin aspart) nifedipine 30 mg tablet,extended 30 mg PO BID 11/30/21 12/11/21 11/30/21 08:00 History release 24 hr (Procardia XL) labetalol 200 mg tablet 200 mg PO TID tab 12/11/21 12/11/21 Unknown History Allergies Allergy/AdvReac Type Severity Reaction Status Date / Time Iodine and Iodide Containing Allergy Severe severe rash Verified 12/11/21 13:13 Produc Current Medications Generic Name Dose Route Start Last Admin Trade Name Freq PRN Reason Stop Dose Admin Betamethasone Acet/Betameth SodPhos 12 mg 12/12/21 18:00 12/12/21 18:07 Betamethasone Susp 6 Mg/Ml 5 Ml IM 12/13/21 18:01 12 mg Q24H EDWINA Administration Lactated Ringer's 1,000 mls @ 999 mls/hr 12/12/21 18:31 12/12/21 18:45 Lactated Ringers IV 999 mls/hr .Q1H1M PRN Administration Per L&D Rescitation Protocol Labetalol HCl 40 mg 12/12/21 17:49 12/12/21 18:37 Labetalol 5 Mg/Ml Sdv 20ml IVP 40 mg PRN PRN Administration HYPERTENSION Protocol Labetalol HCl 20 mg 12/12/21 17:49 12/12/21 18:07 Labetalol 5 Mg/Ml Sdv 20ml IVP 20 mg PRN PRN Administration HYPERTENSION Protocol Labetalol HCl 80 mg 12/12/21 17:49 12/12/21 18:58 Labetalol 5 Mg/Ml Sdv 20ml IVP 80 mg PRN PRN Administration HYPERTENSION Protocol [facility] Anesthesia Medical History Chronic hypertension No pertinent past medical history neghx: thyroid, dvt/pe PCP: [facility] [place] [facility] Type 2 diabetes mellitus Surgical History History of appendectomy History of section 2005-- Emergent primary due to malpresentation; performed by [facility] 2019: Repeat; performed in [facility] History of cholecystectomy Family History Brother Diabetes Hypertension Mother Diabetes Hypertension Father Diabetes Hypertension Other Suicide Denies family history of Colon cancer Ovarian cancer Breast cancer Uterine cancer Thyroid disease Stroke Female Reproductive History Date of last menstrual period: 04/06/21 : 3 Para: 2 (0202) Spontaneous abortions: No Data Anesthesia : 12/12/21 18:00 12/12/21 18:00 Short CBC 12/12/21 Range/Units 18:00 WBC 10.1 H (4.0-10.0) 10^3/uL Hgb 11.1 L (11.5-15.3) g/dL Hct 34.4 L (37.0-47.0) % MCV 85.6 (81-99) fl Plt Count 221 (130-400) 10^3/cmm Neut % (Auto) 66.5 % Neut # (Auto) 6.75 (1.8-7.7) 10^3/uL BMP 12/12/21 18:00 Sodium 137 Potassium 3.9 Chloride 106 Carbon Dioxide 19 L BUN 15 Creatinine 0.5 Glucose 105 Calcium 8.9 Liver Function 12/12/21 Range/Units 18:00 Total Bilirubin 0.2 (0.15-1.2) mg/dL AST 14 (0-32) U/L ALT < 5 (0-33) U/L Alkaline Phosphatase 70 (35-105) IU/L Albumin 3.7 (3.5-5.2) g/dL Urine 12/12/21 Range/Units 18:00 Urine Color Yellow (Yellow) Urine Appearance Clear (CLEAR) Urine pH 6.5 (5-7) Ur Specific [place] 1.015 (1.005-1.030) Urine Protein Neg (Negative) Urine Glucose (UA) Norm (Normal) Urine Ketones Negative (Negative) Urine Nitrate Negative (Negative) Urine Bilirubin Neg (Negative) Ur Leukocyte Esterase Negative (Negative) Cardiac Studies: No Data to Display
--- NOTE | 2021-12-12 21:05 | P.OP_ITS ---
Operative Report Date of procedure: December 12, 2021 Pre-op diagnosis: Preop Diagnosis Severe preeclampsia, previous , desires sterilization Post-op diagnosis: same (delivered with bilateral salpingectomy) Procedure done: repeat with bilateral salpingectomy Specimens removed/disposition: bilateral fallopian tubes to pathology Surgeon: Bella Sarkar Anesthesia: Other (spinal) Estimated blood loss (mL): 450 IV fluids (mL): 1,900 Urine output (mL): 600 Complications: none Findings: term female in the cephalic presentation. Normal appearing uterus, tubes and ovaries Condition: stable Disposition: PACU Brief History: The patient presented with extremely elevated blood pressures- 200/120 and having painful contractions. Preeclampsia labs were normal. Magnesium sulfate was started and the patient was taken for repeat . Procedure: The patient was taken to the operating room where spinal anesthesia was administered and found to be adequate. She was prepped and draped in the normal sterile fashion in the dorsal supine position with a leftward tilt. A Pfannenstiel skin incision was made and carried down to the underlying layer of fascia. The fascia was nicked in the midline and extended laterally with the Queen scissors. The fascia was then tented up and the rectus muscles dissected off sharply. The rectus muscles were and the peritoneum entered bluntly with the digit. The peritoneal incision was extended superiorly and inferiorly with good visualization of the bladder. The Garrick O retractor was placed. It was clear of any bowel or omentum. The bladder flap was created sharply with the Metzenbaum scissors. A low transverse uterine incision was made and carried down to the bag of water. The bag of water was ruptured and the uterine incision extended cephalocaudad. The scalp was grasped and brought through the incision. The nose and mouth were bulb suctioned. The shoulders and body delivered atraumatically. The baby was allowed to rest, while being dried, for 1 minute and then the cord was clamped and cut. The baby was handed to the waiting pre billing clinician. The placenta was delivered by expression. The uterus was exteriorized and cleared of all clots and debris. The uterine incision was closed with 0 Vicryl in a running fashion. A second imbricating layer of 3-0 Monocryl was used to close the uterus. The bladder flap was closed with 3-0 Monocryl. There was excellent hemostasis. Attention was then turned to the tubal ligation portion of the surgery. The right tube was grasped and using the hand held cautery device, the mesosalpinx was cauterized and divided until the entire fallopian tube was removed. This was performed the same way on both sides. There was some bleeding from the mesosalpinx on the left and a stitch was placed for excellent hemostasis. The Garrick O retractor was removed. The uterus was returned to the abdomen. The peritoneum was closed with 3-0 Monocryl, incorporating the rectus muscle. The fascia was closed with 0 Vicryl in 2 separate sutures overlapping in the midline. The skin was closed with absorbable garret. Apgars on baby 8 at 1 minute and 9 at 5 minutes. weight 9 pounds 6 ounces. Mother and baby were stable post delivery.
[2021-12-12] MEDS: oxytocin 30 UNIT/500 ML BAG 60 UNIT IV (22:30)
[2021-12-12] MEDS: oxyCODONE-APAP 5-325 mg Tablet PO (23:30)
[2021-12-12] MEDS: lactated ringers 1,000 ML 75 ML IV (23:36)
[2021-12-13] VITALS (10 sets, daily range): BP systolic 152–169; BP diastolic 91–108; PULSE 88–98; RESP 16–17; TEMP 36.7–36.8; O2SAT 94–96
[2021-12-13 01:42] LABS: Magnesium Level (OB Only) 3.5 mg/dL (5.0-7.5)
--- NOTE | 2021-12-13 02:49 | P.PN_ITS ---
Subjective Subjective: The patient is doing well. Her blood pressures had been in the high normal range. She has had good urine output and her pain has been well controlled. Her baby has not been doing well and will need to be transferred due to pneumonia and blood sugar and potassium issues. The patient became upset when she was told. Her blood pressures increased greatly and she is requesting to be transferred to [place] to be with baby. I have received permission to transfer her. Vitals/I&O/Wt Last Vital Signs Pulse 95 12/12/21 19:08 Resp 16 12/12/21 23:30 BP 202/120 12/12/21 19:02 Pulse Ox 98 12/12/21 19:08 12/12/21 12/12/21 12/13/21 14:59 22:59 06:59 Output Total 600 / 600 Balance -600 / -600 Weight last 48 hrs Weight 310 lb Physical Exam Narrative: Mag sulfate level is a little low at 3.5. Otherwise, patient is doing well. Lochia is minimal. Dressing is clean. Const: COMMON NORMALS: no acute distress, patient oriented x3, no limitations and alert GENERAL APPEARANCE: cooperative, comfortable, well kempt and well developed ORIENTATION/CONSCIOUSNESS: Yes awake, Yes oriented to person, Yes oriented to place and Yes oriented to time Resp: COMMON NORMALS: normal respiratory effort EFFORT & INSPECTION: Yes able to speak in complete sentences Extremity: COMMON NORMALS: no calf tenderness Neuro: COMMON NORMALS: patient oriented x3 SENSORIUM/ORIENTATION: Yes alert, Yes oriented to person, Yes oriented to place and Yes oriented to time Psych: APPEARANCE: Yes well kempt Data : 12/12/21 18:00 12/12/21 18:00 A&P Assessment and plan (1) History of delivery: Status: Acute (2) Rh negative state in antepartum period: Status: Acute (3) Obesity affecting : Status: Acute (4) Rubella non-immune status, antepartum: Status: Acute (5) Chronic hypertension: Status: Acute (6) Type 2 diabetes mellitus: Status: Acute (7) History of pre-eclampsia: Status: Acute (8) Previous delivery, antepartum: Status: Acute (9) Supervision of other high-risk : Status: Acute (10) Severe preeclampsia: stable- baby is being transferred and patient is requesting transfer as well. She has been accepted at [facility] in [place]. Status: Acute Attestations Medical Necessity Statement*: The patient is being transferred to [place] to be with baby. Coding Level of Care Code Acute Foam Rubber Molder for Chg Fwd Diagnoses History of delivery Z87.51 Rh negative state in antepartum period O26.899; Z67.91 Obesity affecting O99.210 Rubella non-immune status, antepartum O99.891; Z28.3 Chronic hypertension I10 Type 2 diabetes mellitus E11.9 History of pre-eclampsia Z87.59 Previous delivery, antepartum O34.219 Supervision of other high-risk O09.899 Severe preeclampsia O14.10
--- NOTE | 2021-12-13 02:55 | P.DS_ITS ---
Discharge Providers Date of Admission: 12/12/21 18:38 Date of Discharge: December 13, 2021 Attending Provider at Admission: Bella Sarkar MD Attending Provider at Discharge: Bella Sarkar MD Primary Care Provider: Bella Sarkar MD Diagnoses at Discharge Discharge Diagnosis (1) History of delivery: Status: Acute (2) Rh negative state in antepartum period: Status: Acute (3) Obesity affecting : Status: Acute (4) Rubella non-immune status, antepartum: Status: Acute (5) Chronic hypertension: Status: Acute (6) Type 2 diabetes mellitus: Status: Acute (7) History of pre-eclampsia: Status: Acute (8) Previous delivery, antepartum: Status: Acute (9) Supervision of other high-risk : Status: Acute (10) Severe preeclampsia: Status: Acute Reason for Visit Reason for Visit: contractions Hospital Course Hospital Course The patient was admitted for contractions and severe preeclampsia with blood pressures in the 200/120 range at 35 weeks, 5 days. She was given several doses of IV labetalol and started on Magnesium Sulfate. She was taken for repeat and tubal. She did well postoperatively until baby needed to be transferred. Her blood pressure elevated again. I received permission from the commissioning editor doctor from [facility] to transfer the patient along with her baby so that they could be together. She was transferred. Discharge Data Studies Completed and Pending Pending at discharge Category Date Time Status Hemagram Timed Lab 12/13/21 09:22 Uncollected Laboratory Results WBC 10.1 10^3/uL (4.0-10.0) H 12/12/21 18:00 RBC 4.02 10^6/uL (4.1-5.3) L 12/12/21 18:00 Hgb 11.1 g/dL (11.5-15.3) L 12/12/21 18:00 Hct 34.4 % (37.0-47.0) L 12/12/21 18:00 MCV 85.6 fl (81-99) 12/12/21 18:00 MCH 27.6 pg (28.0-34.0) L 12/12/21 18:00 MCHC 32.3 g/dL (30.0-36.0) 12/12/21 18:00 RDW 13.0 % (12.1-15.1) 12/12/21 18:00 Plt Count 221 10^3/cmm (130-400) 12/12/21 18:00 MPV 10.0 fL (7.4-10.4) 12/12/21 18:00 Neut % (Auto) 66.5 % 12/12/21 18:00 Lymph % (Auto) 22.4 % 12/12/21 18:00 [place] % (Auto) 7.7 % 12/12/21 18:00 Eos % (Auto) 2.3 % 12/12/21 18:00 Baso % (Auto) 0.6 % 12/12/21 18:00 Neut # (Auto) 6.75 10^3/uL (1.8-7.7) 12/12/21 18:00 Lymph # (Auto) 2.3 10^3/uL (0.8-4.8) 12/12/21 18:00 [place] # (Auto) 0.8 10^3/uL (0.2-0.9) 12/12/21 18:00 Eos # (Auto) 0.2 10^3/uL (0.0-0.8) 12/12/21 18:00 Baso # (Auto) 0.1 10^3/uL (0.0-0.1) 12/12/21 18:00 Nucleated RBC % (auto) 0 % 12/12/21 18:00 Nucleated RBCs # 0.0 /100WBC 12/12/21 18:00 Sodium 137 mmol/L (136-145) 12/12/21 18:00 Potassium 3.9 mmol/L (3.5-5.1) 12/12/21 18:00 Chloride 106 mmol/L (98-107) 12/12/21 18:00 Carbon Dioxide 19 mmol/L (22-29) L 12/12/21 18:00 Anion Gap 15.9 (5-19) 12/12/21 18:00 BUN 15 mg/dL (6-20) 12/12/21 18:00 Creatinine 0.5 mg/dL (0.5-0.9) 12/12/21 18:00 GFR Calculation 140.4 mL/min (90-130) H 12/12/21 18:00 Glucose 105 mg/dL (65-115) 12/12/21 18:00 Calculated Osmolality 285 mOsm/kg (285-295) 12/12/21 18:00 Uric Acid 4.2 mg/dL (2.4-5.7) 12/12/21 18:00 Calcium 8.9 mg/dL (8.5-10.5) 12/12/21 18:00 Magnesium 3.5 mg/dL (5.0-7.5) L* 12/13/21 00:46 Total Bilirubin 0.2 mg/dL (0.15-1.2) 12/12/21 18:00 AST 14 U/L (0-32) 12/12/21 18:00 ALT < 5 U/L (0-33) 12/12/21 18:00 Alkaline Phosphatase 70 IU/L (35-105) 12/12/21 18:00 Total Protein 6.6 g/dL (6.6-8.7) 12/12/21 18:00 Albumin 3.7 g/dL (3.5-5.2) 12/12/21 18:00 Globulin 2.9 g/dL (1.3-4.6) 12/12/21 18:00 Urine Color Yellow (Yellow) 12/12/21 18:00 Urine Appearance Clear (CLEAR) 12/12/21 18:00 Urine pH 6.5 (5-7) 12/12/21 18:00 Ur Specific [place] 1.015 (1.005-1.030) 12/12/21 18:00 Urine Protein Neg (Negative) 12/12/21 18:00 Urine Glucose (UA) Norm (Normal) 12/12/21 18:00 Urine Ketones Negative (Negative) 12/12/21 18:00 Urine Blood Neg (Negative) 12/12/21 18:00 Urine Nitrate Negative (Negative) 12/12/21 18:00 Urine Bilirubin Neg (Negative) 12/12/21 18:00 Urine Urobilinogen Norm mg/dL (Negative) 12/12/21 18:00 Ur Leukocyte Esterase Negative (Negative) 12/12/21 18:00 U Random Total Protein 6 mg/dL 12/12/21 18:00 Urine Creatinine 37 mg/dL (28-217) 12/12/21 18:00 Protein/Creatinin Ratio 0.16 mg/mg CR 12/12/21 18:00 Vitals Last Vital Signs Pulse 95 12/12/21 19:08 Resp 16 12/12/21 23:30 BP 202/120 12/12/21 19:02 Pulse Ox 98 12/12/21 19:08 Discharge Plan Discharge Patient Disposition: Other Inst w Plan Readm Condition: Stable Prescriptions: Continued [id number] Tablet 1 tab PO DAILY 0RF aspirin [Adult Low Dose Aspirin] 81 mg tablet,delayed release (DR/EC) 81 mg PO DAILY 0RF metformin 500 mg tablet 500 mg PO BID 0RF Levemir FlexTouch U-100 Insuln 100 unit/mL (3 mL) insulin pen 80 unit SUBCUT BEDTIME 0RF labetalol 200 mg tablet 200 mg PO TID 0RF insulin aspart U-100 [Novolog Flexpen U-100 Insulin] 100 unit/mL (3 mL) insulin pen 10 unit SUBCUT TID 0RF Label Comments: before meals cetirizine [Allergy Relief (cetirizine)] 10 mg tablet 10 mg PO DAILY 0RF (DME) blood-glucose meter [Blood Glucose Monitoring] Kit See Rx Instructions .Route Qty: 1 0RF Rx Instructions: As directed (DME) lancets-blood glucose strips 30 gauge combo pack See Rx Instructions .Route Qty: 2000 5RF Rx Instructions: fasting, before meals, 2 hours after meals [id number] [Fioricet] 50-300-40 mg capsule 1 cap PO Q6H PRN (Reason: pain) Qty: 30 2RF Levemir FlexTouch U-100 Insuln 100 unit/mL (3 mL) insulin pen 75 unit SUBCUT DAILY 0RF Rx Instructions: 26 UNITS TAKEN IN MORNING Procardia XL 30 mg tablet extended release 24hr 30 mg PO BID 0RF Discharge Orders: Discharge Order (Routine); Ordered 12/13/21 Ordered By: Bella Sarkar Discharge Attestations Time Spent in Discharge Care*: less than 30 min Quality Metrics Clinical Quality Measures [ No reported AMI, CVA or VTE this stay] Coding Level of Care Code Acute Chg FW DC note Diagnoses History of delivery Z87.51 Rh negative state in antepartum period O26.899; Z67.91 Obesity affecting O99.210 Rubella non-immune status, antepartum O99.891; Z28.3 Chronic hypertension I10 Type 2 diabetes mellitus E11.9 History of pre-eclampsia Z87.59 Previous delivery, antepartum O34.219 Supervision of other high-risk O09.899 Severe preeclampsia O14.10
[2021-12-13] MEDS: oxyCODONE-APAP 5-325 mg Tablet PO ×2 (03:18→07:20)
--- NOTE | 2021-12-13 06:56 | ANE.PACU2 ---
Inpatient post-anesthesia follow up: Airway intact: Yes Vital signs: Temperature 98.0 F Pulse Rate 83 Respiratory Rate 17 Blood Pressure 132/77 Pulse Oximetry 98 Oxygen Delivery Me thod Room Air Oxygen Flow Rate Fraction of Inspir ed Oxygen Hydration adequate: Yes Nausea and vomiting: No Pain level: 2 Mental status: Baseline
== END 2021-12-13 07:35 | disposition short-term general hospital (02) | DRG 785 ==
LOC: OPOB 18:39 → OBGYN 18:39
PROVIDERS: Admitting Provider Obstetrics & Gynecology; PCP Obstetrics & Gynecology; Visit Provider Obstetrics & Gynecology
PROC: 10D00Z1 Extraction of Products of Conception, Low, Open Approach (ICD-10-PCS; CPT 59514; principal; 2021-12-12 19:10)
DX: O14.14 Severe pre-eclampsia complicating childbirth (principal); Z3A.35 35 weeks gestation of pregnancy; Z37.0 Single live birth; O10.02 Pre-existing essential hypertension complicating childbirth; O34.219 Maternal care for unspecified type scar from previous cesarean delivery; O99.214 Obesity complicating childbirth; E66.01 Morbid (severe) obesity due to excess calories; O24.12 Pre-existing type 2 diabetes mellitus, in childbirth; O26.893 Other specified pregnancy related conditions, third trimester; Z67.11 Type A blood, Rh negative; Z87.51 Personal history of pre-term labor; Z28.3 Underimmunization status; Z79.4 Long term (current) use of insulin
CPT/HCPCS: 36415; 51702; 59025; 80053; 81003; 82570; 83735; 84156; 84550; 85025; 86850; 86900; 88302; 96372; 99211; J0702; J2274; J2370; J2405; J2765; J3475; J3490

== ENCOUNTER 2023-04-01 13:03 | Emergency (ER) | payer BC, SELFPAY ==
[2023-04-01 14:02] VITALS: BP 176/108; PULSE 96; RESP 12; TEMP 37.3; O2SAT 93; BMI 41.1
--- NOTE | 2023-04-01 14:21 | W.ED.HA ---
HPI - Headache General: Chief Complaint: Headache Stated Complaint: head pain Time Seen by Provider: 04/01/23 14:09 Source: patient Mode of arrival: ambulatory Limitations: no limitations History of Present Illness: Patient is a 37-year-old female presents to ED today with a complaint of a severe headache over the past 2 weeks. She states she does not remember what she was doing when the headache started but does remember it came on gradually. She denies any acute onset/thunderclap headache. She states over the past 2 weeks headache has seemed to wax and wane but never fully goes away. She is followed up with her primary care provider who has tried a few different medications without relief. She was seen at [facility] recently and given Dilaudid and Benadryl which worked for 12 hours but headache returned. She reports some mild blurry vision. Blood pressure elevated upon arrival at 176/108. She does state her blood pressure is usually normal at home. She has taken her blood pressure medications this morning. Patient is not having any speech or gait abnormalities. She denies numbness, tingling, loss of sensation, weakness to her extremities. She has no previous history of headaches or migraine history. Denies neck pain/stiffness. No fevers. MD elicited complaint: headache Onset (ago): week(s) Onset description: gradually Location: occipital, retro-orbital and down into neck Severity: severe Pain scale (0-10): 10 Exacerbating factors: light and noise Relieving factors: nothing Associated symptoms: Reports nausea; Deny chest pain, confusion, fever(s), lightheadedness, malaise, rash, syncope or vomiting Treatments prior to arrival: acetaminophen, ibuprofen, prescription analgesic and migraine medication Review of Systems Const: Denies: fever(s), chills, body aches, fatigue or malaise Eyes: Reports: blurry vision; Denies: floaters or seeing flashes ENMT: Denies: nasal discharge, nasal congestion or sinus pain Card: Denies: chest pain, palpitations, lightheadedness or syncope GI: Reports: nausea; Denies: abdominal pain, vomiting, diarrhea or change in bowel habits Musc: Denies: neck pain, back pain, extremity pain or joint pain Skin/Breast: Denies: rash Neuro: Reports: headache(s); Denies: numbness in extremities, weakness in extremities, sensory changes, lack of coordination, difficulty walking, dizziness, vertigo, confusion, behavioral changes, Slurred speech present, difficulty communicating thoughts or seizure-like activity PFS ED PFSH: Medical History Chronic hypertension No pertinent past medical history neghx: thyroid, dvt/pe PCP: Tatiana in [facility] Type 2 diabetes mellitus Surgical History History of appendectomy History of section 2005-- Emergent primary due to malpresentation; performed by [facility] 2019: Repeat; performed in [facility] History of cholecystectomy Family History Brother Diabetes Hypertension Mother Diabetes Hypertension Father Diabetes Hypertension Other Suicide Denies family history of Colon cancer Ovarian cancer Breast cancer Uterine cancer Thyroid disease Stroke Social History Substance/Drug Use: never Do you think of yourself as: Straight/Heterosexual Female Reproductive History: Para: 2 (0202) Spontaneous abortions: No Physical Exam Const: COMMON NORMALS: no acute distress, average body habitus, patient oriented x3, no limitations, alert and well nourished GENERAL APPEARANCE: cooperative and in distress (appears uncomfortable; sunglasses on) NUTRITIONAL APPEARANCE: obese morbidly obese ORIENTATION/CONSCIOUSNESS: Yes awake, Yes oriented to person, Yes oriented to place and Yes oriented to time HENMT: COMMON NORMALS: normocephalic, atraumatic, EAC's normal and TM's normal bilaterally HEAD & SCALP: normal to inspection, normocephalic and atraumatic EXTERNAL AUDITORY CANAL: EAC's normal TYMPANIC MEMBRANE: TM's normal bilaterally THROAT: posterior oropharynx normal Eye: COMMON NORMALS: Equal, round and reactive pupils present and EOMs intact bilaterally GENERAL EYE: appearance normal, both eyes and all related structures and normal light reflex PUPIL: Yes Equal, round and reactive pupils present DIRECT OPHTHALMOSCOPY: Yes normal light reflex Neck/C-Spine: COMMON NORMALS: full ROM, no lymphadenopathy, supple, no meningeal signs and no JVD GENERAL: Yes normal visual inspection Resp: COMMON NORMALS: normal respiratory effort and clear to auscultation bilaterally AUSCULTATION: clear to auscultation bilaterally Cardio: COMMON NORMALS: no JVD, regular rate and regular rhythm RATE: regular rate RHYTHM: regular rhythm Extremity: COMMON NORMALS: normal to inspection Neuro: GARY COMA SCALE: document GCS findings Gary coma scale eye opening: Spontaneous [place] coma scale verbal response: Orientated [place] coma scale motor response: Obey commands [place] coma scale total score: 15 COMMON NORMALS: patient oriented x3, CN's II-XII intact bilaterally, moves all extremities, no focal motor deficits, no sensory deficits noted and gait normal SENSORIUM/ORIENTATION: Yes alert, Yes oriented to person, Yes oriented to place and Yes oriented to time MENINGEAL SIGNS: Yes no meningeal signs SPEECH: speech normal GAIT: Yes Normal gait present MOTOR EXAM: 5/5 motor strength present throughout Skin: COMMON NORMALS: no rashes or lesions noted GENERAL SKIN EXAM: no rashes or lesions noted Course Vital Signs: Vital signs: Vital Signs Temperature 99.1 F 04/01/23 14:02 Pulse Rate 100 04/01/23 16:02 Respiratory Rate 16 04/01/23 15:45 Blood Pressure 174/125 04/01/23 16:02 Pulse Oximetry 94 04/01/23 16:02 Oxygen Delivery Me thod Room Air 04/01/23 14:02 MDM - Headache Medical Decision Making Patient does not provide any history of acute onset headache/thunderclap headache. No have any concerns at this time for SAH. Blood work here overall is fairly unremarkable. She has some minor LFT elevations. This most likely is secondary to a fatty liver as her BMI is over 40. Glucose was elevated at 357. She has a normal gap and bicarb. She does state her sugars have been running high. CT head is negative. Headache has improved with medications given here. She states she has follow-up with her primary care provider on Saturday. BP during my repeat examination was 160s/90s. Recommend she keep a log at home and follow-up with primary care to see if they need to adjust hypertension medication. Return ED precautions given. Lab Data 04/01/23 15:18 04/01/23 15:[address] 04/01/23 14:31 IMPRESSION: No acute intracranial abnormality. Laboratory Results WBC 6.6 10^3/uL (4.0-10.0) 04/01/23 15:18 RBC 5.10 10^6/uL (4.1-5.3) 04/01/23 15:18 Hgb 14.2 g/dL (11.5-15.3) 04/01/23 15:18 Hct 44.3 % (37.0-47.0) 04/01/23 15:18 MCV 86.9 fl (81-99) 04/01/23 15:18 MCH 27.8 pg (28.0-34.0) L 04/01/23 15:18 MCHC 32.1 g/dL (30.0-36.0) 04/01/23 15:18 RDW 12.5 % (12.1-15.1) 04/01/23 15:18 Plt Count 182 10^3/cmm (130-400) 04/01/23 15:18 MPV 9.6 fL (7.4-10.4) 04/01/23 15:18 Neut % (Auto) 48.5 % 04/01/23 15:18 Lymph % (Auto) 41.6 % 04/01/23 15:18 [place] % (Auto) 5.5 % 04/01/23 15:18 Eos % (Auto) 3.5 % 04/01/23 15:18 Baso % (Auto) 0.6 % 04/01/23 15:18 Neut # (Auto) 3.19 10^3/uL (1.8-7.7) 04/01/23 15:18 Lymph # (Auto) 2.7 10^3/uL (0.8-4.8) 04/01/23 15:18 [place] # (Auto) 0.4 10^3/uL (0.2-0.9) 04/01/23 15:18 Eos # (Auto) 0.2 10^3/uL (0.0-0.8) 04/01/23 15:18 Baso # (Auto) 0.0 10^3/uL (0.0-0.1) 04/01/23 15:18 Nucleated RBC % (auto) 0 % 04/01/23 15:18 Nucleated RBCs # 0.0 /100WBC 04/01/23 15:18 Sodium 134 mmol/L (136-145) L 04/01/23 15:18 Potassium 4.5 mmol/L (3.5-5.1) 04/01/23 15:18 Chloride 99 mmol/L (98-107) 04/01/23 15:18 Carbon Dioxide 22 mmol/L (22-29) 04/01/23 15:18 Anion Gap 17.5 (5-19) 04/01/23 15:18 BUN 9 mg/dL (6-20) 04/01/23 15:18 Creatinine 0.7 mg/dL (0.5-0.9) 04/01/23 15:18 GFR Calculation 94.7 mL/min (90-130) 04/01/23 15:18 Glucose 357 mg/dL (65-115) H 04/01/23 15:18 Calculated Osmolality 291 mOsm/kg (285-295) 04/01/23 15:18 Calcium 9.7 mg/dL (8.5-10.5) 04/01/23 15:18 Total Bilirubin 0.4 mg/dL (0.15-1.2) 04/01/23 15:18 AST 43 U/L (0-32) H 04/01/23 15:18 ALT 65 U/L (0-33) H 04/01/23 15:18 Alkaline Phosphatase 83 U/L (35-105) 04/01/23 15:18 Total Protein 7.6 g/dL (6.6-8.7) 04/01/23 15:18 Albumin 4.3 g/dL (3.5-5.2) 04/01/23 15:18 Globulin 3.3 g/dL (1.3-4.6) 04/01/23 15:18 HCG, Qual Negative (Negative) 04/01/23 15:18 Discharge Plan Discharge Patient Disposition: Home Clinical Impression: Headache Qualifiers: Headache type: unspecified Headache chronicity pattern: acute headache Intractability: not intractable Qualified Code(s): R51.9 - Headache, unspecified Condition: Stable Prescriptions: No Action labetalol 200 mg tablet 200 mg PO BID citalopram [Celexa] 20 mg tablet 20 mg PO DAILY losartan 100 mg tablet 100 mg PO DAILY glipizide 5 mg tablet 5 mg PO DAILY fenugreek seed extract 500 mg capsule PO (DME) blood-glucose meter [Blood Glucose Monitoring] Kit See Rx Instructions .Route Qty: 1 0RF Rx Instructions: As directed (DME) lancets-blood glucose strips 30 gauge combo pack See Rx Instructions .Route Qty: 2000 5RF Rx Instructions: fasting, before meals, 2 hours after meals buspirone 5 mg tablet 5 mg PO BID 30 Days Qty: 60 6RF Discharge Orders: Discharge ED (Routine); Ordered 04/01/23 Ordered By: Latasha Davison Referrals: Joseph Miller MD [Primary Care Provider] - Patient Instructions: Headache, Acute Headache (DC) Coding Level of Care Code ED Reimbursement Coordinator for Dez Aguila
--- NOTE | 2023-04-01 14:31 | CTR_ITS ---
PROCEDURE INFORMATION: Exam: CT Head Without Contrast Exam date and time: 04/01/2023 2:45 PM Age: 37 years old Clinical indication: Pain; Headache; Additional info: Severe GIBBS TECHNIQUE: Imaging protocol: Computed tomography of the head without contrast. Radiation optimization: All CT scans at this facility use at least one of these dose optimization techniques: automated exposure control; mA and/or kV adjustment per patient size (includes targeted exams where dose is matched to clinical indication); or iterative reconstruction. REPORTING DATA: Count of CT and Cardiac NM exams in prior 12 months: This patient has received 0 known CTs and 0 known cardiac nuclear medicine studies in the 12 months prior to the current study. COMPARISON: No relevant prior studies available. RADIATION DOSE METRICS: Total DLP (mGy-cm): 1111.94 FINDINGS: Brain: Normal. No hemorrhage. Unremarkable white matter. No mass effect. Cerebral ventricles: No ventriculomegaly. Paranasal sinuses: Visualized sinuses are unremarkable. No fluid levels. Mastoid air cells: Visualized mastoid air cells are well aerated. Bones/joints: Unremarkable. No acute fracture. Soft tissues: Unremarkable. CT/CT head wo con* [id number] IMPRESSION: No acute intracranial abnormality.
[2023-04-01] MEDS: valproic acid inj 500 MG in sodium chloride 0.9% 50 ML 55 MG IV (14:59)
[2023-04-01] MEDS: ondansetron 2 mg/ML SDV 2 mL 4 MG IVP (15:15)
[2023-04-01] MEDS: diphenhydrAMINE 50 mg/mL SDV 1mL IVP (15:15)
--- NOTE | 2023-04-01 15:15 | PC.NURSE ---
PT [facility]P MEDS AT 1515 WERE PUSHED BY CARINE Ivory RN
[2023-04-01 15:45] VITALS: RESP 16
[2023-04-01] MEDS: HYDROmorphone 1 mg/mL INJ 1 mL IVP (15:45)
[2023-04-01 15:53] LABS: Basophils % 0.6 %; Eosinophils # 0.2 10^3/uL (0.0-0.8); Eosinophils % 3.5 %; Hematocrit 44.3 % (37.0-47.0); Hemoglobin 14.2 g/dL (11.5-15.3); Lymphocytes # 2.7 10^3/uL (0.8-4.8); Lymphocytes % 41.6 %; Mean Corpuscular HGB Conc 32.1 g/dL (30.0-36.0); Mean Corpuscular Hemoglobin 27.8 pg (28.0-34.0); Mean Corpuscular Volume 86.9 fl (81-99); Mean Platelet Volume 9.6 fL (7.4-10.4); Monocytes # 0.4 10^3/uL (0.2-0.9); Monocytes % 5.5 %; Neutrophils # 3.19 10^3/uL (1.8-7.7); Neutrophils % 48.5 %; Nucleated Red Blood Cells % 0 %; Platelet Count 182 10^3/cmm (130-400); Red Cell Distribution Width 12.5 % (12.1-15.1); White Blood Count 6.6 10^3/uL (4.0-10.0)
[2023-04-01 16:02] VITALS: BP 174/125; PULSE 100; O2SAT 94
[2023-04-01 16:03] LABS: Alanine Aminotransferase 65 U/L (0-33); Albumin Level 4.3 g/dL (3.5-5.2); Alkaline Phosphatase 83 U/L (35-105); Blood Urea Nitrogen 9 mg/dL (6-20); Calcium 9.7 mg/dL (8.5-10.5); Carbon Dioxide 22 mmol/L (22-29); Chloride 99 mmol/L (98-107); Globulin 3.3 g/dL (1.3-4.6); Glomerular Filtration Rate 94.7 mL/min (90-130); Glucose 357 mg/dL (65-115); Osmolality Calculated 291 mOsm/kg (285-295); Sodium 134 mmol/L (136-145); Total Bilirubin 0.4 mg/dL (0.15-1.2); Total Protein 7.6 g/dL (6.6-8.7)
[2023-04-01 16:13] LABS: Anion Gap 17.5 (5-19); Aspartate Amino Transferase 43 U/L (0-32); Potassium 4.5 mmol/L (3.5-5.1)
[2023-04-01 16:24] LABS: HCG, Serum Qual Negative (Negative)
[2023-04-01] MEDS: dihydroergotamine 1 mg/mL Inj IVP (16:35)
[2023-04-01] MEDS: metoprolol tartrate 1 mg/1 mL SDV 5 mL 5 MG IVP (16:36)
[2023-04-01] MEDS: metoclopramide 5 mg/mL SDV 2 mL 10 MG IVP (16:38)
--- NOTE | 2023-04-01 16:39 | PC.NURSE ---
pt ami armstrong pushed by david vance rn
== END 2023-04-01 17:08 | disposition home or self-care (01) ==
PROVIDERS: Emergency Provider Physician Assistant; PCP Pediatrics
DX: R51.9 Headache, unspecified (principal); Z79.84 Long term (current) use of oral hypoglycemic drugs; I10 Essential (primary) hypertension; E11.9 Type 2 diabetes mellitus without complications
CPT/HCPCS: 36415; 70450; 80053; 84703; 85025; 96365; 96375; 99285; J1110; J1170; J1200; J2405; J2765; J3490

== ENCOUNTER 2023-08-06 14:09 | Emergency (ER) | payer BC, SELFPAY ==
[2023-08-06 14:19] VITALS: BP 171/121; PULSE 80; RESP 16; TEMP 36.9; O2SAT 99; BMI 39.4
[2023-08-06 14:25] VITALS: BP 180/102; PULSE 97; RESP 18; O2SAT 99
--- NOTE | 2023-08-06 14:25 | W.ED.BACK ---
HPI - Back Pain/Injury General: Chief Complaint: Back Pain/Injury Stated Complaint: fell, back pain Time Seen by Provider: 08/06/23 14:25 Source: patient Mode of arrival: ambulatory Limitations: no limitations History of Present Illness: Patient is a 37-year-old female presents to ED today with complaint of lower back pain. Patient states 2 days ago she accidentally tripped and fell forward. Patient states she was able to catch herself and did not land directly onto her back however began noticing lower back pain following the fall. She feels like there is a knot to her lower back. Patient states she takes Zanaflex and Hydrocodone for her fibromyalgia and has been taking this without much relief. Patient states she is not able to take anti-inflammatories as the tend to raise her blood pressure. Patient denies saddle anesthesia. She is not having any radicular symptoms. No bowel or bladder dysfunction. MD elicited complaint: back pain and fall Onset (ago): day(s) Timing: constant Severity: moderate Similar Symptoms Previously: No Location: lumbar spine Radiation: none Exacerbating factors: movement Relieving factors: none Associated symptoms: Reports no associated symptoms; Deny chills, difficulty walking, dysuria, fatigue or fever(s) Work related injury: No Review of Systems Const: Denies: fever(s), chills, body aches, fatigue or malaise Card: Denies: chest pain Resp: Denies: dyspnea : Denies: flank pain or dysuria Musc: Reports: back pain; Denies: neck pain, extremity pain, extremity swelling, joint pain, joint swelling, joint redness or joint warmth Skin/Breast: Denies: rash Neuro: Denies: headache(s), numbness in extremities, weakness in extremities, sensory changes or difficulty walking PFS ED PFSH: Medical History Chronic hypertension No pertinent past medical history neghx: thyroid, dvt/pe PCP: Tatiana in [facility] Type 2 diabetes mellitus Surgical History History of appendectomy History of section 2005-- Emergent primary due to malpresentation; performed by [facility] 2019: Repeat; performed in [facility] History of cholecystectomy Family History Brother Diabetes Hypertension Mother Diabetes Hypertension Father Diabetes Hypertension Other Suicide Denies family history of Colon cancer Ovarian cancer Breast cancer Uterine cancer Thyroid disease Stroke Social History Substance/Drug Use: never Do you think of yourself as: Straight/Heterosexual Female Reproductive History: Para: 2 (0202) Spontaneous abortions: No Physical Exam Const: COMMON NORMALS: no acute distress, patient oriented x3, no limitations, alert and well nourished GENERAL APPEARANCE: cooperative NUTRITIONAL APPEARANCE: obese ORIENTATION/CONSCIOUSNESS: Yes awake, Yes oriented to person, Yes oriented to place and Yes oriented to time Resp: COMMON NORMALS: normal respiratory effort Cardio: COMMON NORMALS: regular rate and regular rhythm RATE: regular rate RHYTHM: regular rhythm GI: COMMON NORMALS: non-tender and no masses Back/Pelvis: THORACIC SPINE/UPPER BACK: Yes thoracic ROM normal, No thoracic spinal tenderness, No paraspinal muscle tenderness and No paraspinal muscle spasm LUMBAR SPINE/LOWER BACK: Yes ROM limited, Yes paraspinal muscle tenderness Lumbar paraspinal muscle tenderness: left, No paraspinal muscle spasm and Yes straight leg raise negative bilaterally PELVIS: Yes buttocks normal and No sciatic notch tenderness SACROILIAC JOINTS: Yes SI joints normal SACRUM: no tenderness COCCYX: no tenderness Extremity: COMMON NORMALS: normal to inspection GENERAL: Yes normal exam except as noted Neuro: GARY COMA SCALE: document GCS findings [place] coma scale eye opening: Spontaneous [place] coma scale verbal response: Orientated Gary coma scale motor response: Obey commands Gary coma scale total score: 15 COMMON NORMALS: patient oriented x3, moves all extremities, no focal motor deficits and no sensory deficits noted SENSORIUM/ORIENTATION: Yes alert, Yes oriented to person, Yes oriented to place and Yes oriented to time Skin: COMMON NORMALS: no rashes or lesions noted GENERAL SKIN EXAM: no rashes or lesions noted Course Vital Signs: Vital signs: Vital Signs Temperature 98.4 F 08/06/23 14:19 Pulse Rate 97 08/06/23 14:25 Respiratory Rate 18 08/06/23 14:25 Blood Pressure 180/102 08/06/23 14:25 Pulse Oximetry 99 08/06/23 14:25 Oxygen Delivery Me thod Room Air 08/06/23 14:19 MDM - Back Pain/Injury Medical Decision Making Personal interpretation of patient's lumbar XR is negative. She was given IM steroids, anti-inflammatories, and muscle relaxers here. Patient states she is not able to take OTC anti-inflammatories as it raises her blood pressure. Same with steroids. Her blood pressure is elevated here. She has a history of chronic hypertension. Patient takes Zanaflex daily for her fibromyalgia. She also takes hydrocodone. She states hydrocodone she can take up to every 4 hours but states she normally only takes it every 6-8 hours. She admittedly has been taking it more frequently over the past 48 hours due to back injury and thus is out of this medication. She is requesting a small amount until she can be seen by primary care and/or pain management. XR interpretation done by ED provider, pending radiology final review Discharge Plan Discharge Patient Disposition: Home Clinical Impression: Strain of lumbar region Condition: Stable Prescriptions: New hydrocodone-acetaminophen 5-325 mg tablet 1 tab PO Q6H PRN (Reason: pain) Qty: 8 0RF No Action labetalol 200 mg tablet 200 mg PO BID citalopram [Celexa] 20 mg tablet 20 mg PO DAILY losartan 100 mg tablet 100 mg PO DAILY glipizide 5 mg tablet 15 mg PO BID (DME) blood-glucose meter [Blood Glucose Monitoring] Kit See Rx Instructions .Route Qty: 1 0RF Rx Instructions: As directed (DME) lancets-blood glucose strips 30 gauge combo pack See Rx Instructions .Route Qty: 2000 5RF Rx Instructions: fasting, before meals, 2 hours after meals Victoza 2-Reese 0.6 mg/0.1 mL (18 mg/3 mL) pen injector 1.2 mg SUBCUT DAILY hydrocodone-acetaminophen 5-400 mg tablet PO Discharge Orders: Discharge ED (Routine); Ordered 08/06/23 Ordered By: Latasha Davison Referrals: Joseph Miller MD [Primary Care Provider] - Patient Instructions: Opioid Safety, Pain Management Activity Restrictions/Additional Instructions: As we discussed you can continue your Zanaflex. You may try ice/heat. You may use pain medication sparingly and for severe pain only. Please follow-up with your primary care provider. Coding Level of Care Code ED Erecting Crane Operator for Dez Aguila
--- NOTE | 2023-08-06 14:33 | XRR_ITS ---
PROCEDURE INFORMATION: Exam: XR Lumbosacral Spine Exam date and time: 08/06/2023 2:40 PM Age: 37 years old Clinical indication: Injury or trauma; Fall; Blunt trauma (contusions or hematomas) TECHNIQUE: Imaging protocol: Radiologic exam of the lumbosacral spine. Views: 2 or 3 views. COMPARISON: US OB BPP w [facility] 12/11/2021 2:02 PM FINDINGS: Bones/joints: Normal. No acute fracture. Normal alignment. Soft tissues: Unremarkable. XR/XR lumbar spine 2-3V* [id number] IMPRESSION: No acute findings.
[2023-08-06] MEDS: orphenadrine 30 mg/mL Inj 2 mL 60 MG IM (14:50)
[2023-08-06] MEDS: dexamethasone 10 mg/mL INJ IM (14:52)
[2023-08-06] MEDS: ketorolac 60 mg/2 mL INJ IM (14:53)
== END 2023-08-06 15:12 | disposition home or self-care (01) ==
PROVIDERS: Emergency Provider Physician Assistant; PCP Pediatrics
DX: S39.012A Strain of muscle, fascia and tendon of lower back, initial encounter (principal); Z79.84 Long term (current) use of oral hypoglycemic drugs; I10 Essential (primary) hypertension; E11.9 Type 2 diabetes mellitus without complications; W01.0XXA Fall on same level from slipping, tripping and stumbling without subsequent striking against object, initial encounter
CPT/HCPCS: 72100; 96372; 99284; J1100; J1885; J2360

== ENCOUNTER 2023-08-21 15:01 | Outpatient (CLI) | payer BC, SELFPAY ==
--- NOTE | 2023-08-21 15:15 | MR_ITS ---
WS: [id number] MRA HEAD TECHNIQUE: Axial 3-D TOF images obtained with axial images and axial, sagittal, and coronal 2-D refor matted images. CLINICAL INFORMATION: G44.53 - Primary thunderclap headache COMPARISON: None. FINDINGS: Dominant distal LEFT vertebral artery. Tiny RIGHT vertebral artery ends in PICA. Basilar artery is pa tent. Persistent RIGHT CITY PLANNER. Normal vascularity to the CITY PLANNER territory bilaterally. Both ICAs are patent at the skull base. Normal vascularity to the MARITZA and MCA territories bilaterally . No evidence of proximal flow-limiting stenosis or aneurysm. IMPRESSION: 1. No evidence of proximal flow-limiting stenosis or aneurysm. 2. Dominant distal LEFT vertebral artery. RIGHT vertebral artery ends in PICA. 3. Persistent RIGHT CITY PLANNER.
--- NOTE | 2023-08-21 15:30 | MR_ITS ---
WS: [id number] MRI HEAD WITHOUT CONTRAST TECHNIQUE: Sagittal T1, T2 axial, T2 axial FLAIR, axial and coronal T1 images, axial susceptibility w eighted imaging, axial diffusion weighted images, and coronal T2 images were obtained. CLINICAL INFORMATION: G44.53 - Primary thunderclap headache COMPARISON: None. FINDINGS: Some images degraded by motion. No evidence of restricted diffusion to suggest acute ischemia. Ventricular system and basal cisterns are patent. No suspicious intracranial signal abnormalities considering motion artifact. Normal curtis- white differentiation. Normal posterior fossa. Normal vascular flow voids at the skull base. No extra -axial fluid collections. No evidence of mass or mass effect. Mild mucosal thickening in the paranasal sinuses. Mastoid air osmin ls are well aerated. No hemosiderin on the susceptibly weighted images. Normal optic chiasm and pitui tary infundibulum. No other suspicious findings. IMPRESSION: Some images degraded by motion. 1. No evidence of restricted diffusion to suggest acute ischemia. 2. No suspicious intracranial signal abnormalities. 3. No hemosiderin on susceptibility weighted imaging.
== END 2023-08-21 15:02 | disposition home or self-care (01) ==
LOC: RAD 15:01
PROVIDERS: PCP Pediatrics; Visit Provider Psychiatry & Neurology Neurology
DX: G44.53 Primary thunderclap headache (principal)
CPT/HCPCS: 70544; 70551

== ENCOUNTER 2023-09-02 10:35 | Emergency (ER) | payer BC, SELFPAY ==
[2023-09-02 10:41] VITALS: BP 174/121; PULSE 88; RESP 17; TEMP 36.6; O2SAT 96; BMI 39.4
--- NOTE | 2023-09-02 10:52 | ED_ITS ---
HPI - General Adult 2 General: Chief complaint: Extremity Injury, Lower Stated complaint: left knee pain and back pain Time Seen by Provider: 09/02/23 10:38 Source: patient Mode of arrival: ambulatory Limitations: no limitations History of Present Illness: Patient is a 37-year-old female presents to ED today with a complaint of left knee and lower back pain. Patient states over the weekend she was putting up Kathy decorations and feels like she strained to these areas. No falls. Patient states she was at her rheumatology appointment earlier today and they reported her blood pressure was high. She states this is secondary to a pain response so figured she would come to the emergency department for evaluation. Patient has been ambulatory on her knee without difficulty or assistance. Patient states her blood pressure is normally controlled at home and keeps a detailed log. She does take blood pressure medications and has been compliant with these. Onset (ago): day(s) Location: back, left and lower extremity Severity: moderate Pain Consistency: constant Relieving factors: none Exacerbating factors: movement and other (walking) Associated symptoms: Reports no associated symptoms; Deny chest pain, dyspnea or malaise Treatments prior to arrival: none Review of Systems 2 Const: Denies: fever(s), chills, body aches, fatigue or malaise Card: Denies: chest pain Resp: Denies: dyspnea : Denies: flank pain, dysuria or hematuria Musc: Reports: back pain and joint pain (L knee); Denies: neck pain, extremity pain, extremity swelling, joint swelling, joint redness, joint warmth, joint stiffness, limited range of motion or muscle cramps Neuro: Denies: numbness in extremities, weakness in extremities, sensory changes or difficulty walking PFSH ED 2 PFSH: Medical History Type 2 diabetes mellitus Chronic hypertension No pertinent past medical history neghx: thyroid, dvt/pe PCP: Tatiana in [facility] Surgical History History of section 2006-- Emergent primary due to malpresentation; performed by [facility] 2019: Repeat; performed in [facility] History of appendectomy History of cholecystectomy Family History Brother Diabetes Hypertension Mother Diabetes Hypertension Father Diabetes Hypertension Other Suicide Denies family history of Colon cancer Ovarian cancer Breast cancer Uterine cancer Thyroid disease Stroke Social History Smoking and tobacco/nicotine status: never used tobacco/nicotine Substance/Drug Use: never Do you think of yourself as: Straight/Heterosexual Female Reproductive History: Para: 2 (0202) Spontaneous abortions: No Physical Exam 2 Const: COMMON NORMALS: no acute distress, patient oriented x3, no limitations, alert and well nourished GENERAL APPEARANCE: cooperative NUTRITIONAL APPEARANCE: overweight ORIENTATION/CONSCIOUSNESS: Yes awake, Yes oriented to person, Yes oriented to place and Yes oriented to time Back/Pelvis: COMMON NORMALS: thoracic and lumbar spine normal to inspection, no thoracic nor lumbar tenderness, thoraco-lumbar ROM normal and straight leg raise negative bilaterally THORACIC SPINE/UPPER BACK: Yes normal to inspection and Yes thoracic ROM normal LUMBAR SPINE/LOWER BACK: Yes paraspinal muscle tenderness PELVIS: Yes buttocks normal SACRUM: no tenderness COCCYX: no tenderness BACK IMAGE (FEMALE): 1. TTP Extremity: COMMON NORMALS: normal to inspection, full ROM, capillary refill normal, no joint enlargement, no clubbing, cyanosis or edema, no calf tenderness and no pedal edema GENERAL: Yes normal exam except as noted LEFT LOWER EXTREMITY: Yes knee joint (mild tenderness but full seemingly painless ROM) Left knee: Yes inspection (normal gross inspection; no edema) and Yes neurovascular exam (normal) Neuro: NAVDEEP COMA SCALE: document GCS findings [place] coma scale eye opening: Spontaneous [place] coma scale verbal response: Orientated [place] coma scale motor response: Obey commands [place] coma scale total score: 15 COMMON NORMALS: patient oriented x3, moves all extremities, no focal motor deficits and no sensory deficits noted SENSORIUM/ORIENTATION: Yes alert, Yes oriented to person, Yes oriented to place and Yes oriented to time Course 2 Vital Signs: Vital signs: Vital Signs Temperature 97.8 F 09/02/23 10:41 Pulse Rate 88 09/02/23 10:41 Respiratory Rate 17 09/02/23 10:41 Blood Pressure 174/121 09/02/23 10:41 Pulse Oximetry 96 09/02/23 10:41 Oxygen Delivery Me thod Room Air 09/02/23 10:41 MDM - General Adult Medical Decision Making Neither area requires imaging at this time. Patient was offered steroids but declines. Will place her on anti-inflammatories. Patient states she does take zanaflex at home daily. Looking at previous documentation she used to take hydrocodone as well but states she was recently taken off of this medication because it did not help with my fibromyalgia . Complaints do not warrant narcotic pain medication at this time. Medical Records I reviewed the patient's medical records. No radiology studies performed this visit Discharge Plan Discharge Patient Disposition: Home Clinical Impression: Back sprain Left knee sprain Qualifiers: Encounter type: initial encounter Involved ligament of knee: unspecified ligament Qualified Code(s): S83.92XA - Sprain of unspecified site of left knee, initial encounter Condition: Stable Prescriptions: New meloxicam 7.5 mg tablet 7.5 mg PO DAILY Qty: 7 0RF Discontinued hydrocodone-acetaminophen 5-400 mg tablet PO hydrocodone-acetaminophen 5-325 mg tablet 1 tab PO Q6H PRN (Reason: pain) Qty: 8 0RF No Action labetalol 200 mg tablet 200 mg PO BID losartan 100 mg tablet 100 mg PO DAILY glipizide 5 mg tablet 15 mg PO BID (DME) blood-glucose meter [Blood Glucose Monitoring] Kit See Rx Instructions .Route Qty: 1 0RF Rx Instructions: As directed (DME) lancets-blood glucose strips 30 gauge combo pack See Rx Instructions .Route Qty: 2000 5RF Rx Instructions: fasting, before meals, 2 hours after meals Victoza 2-Reese 0.6 mg/0.1 mL (18 mg/3 mL) pen injector 1.2 mg SUBCUT DAILY Savella 12.5 mg (5)-25 mg(8)-50 mg(42) tablets,dose pack See Rx Instructions PO PER PKG DIR Qty: 55 0RF Rx Instructions: PO PER PKG DIR Savella 50 mg tablet 50 mg PO BID Qty: 60 3RF Discharge Orders: Discharge ED (Routine); Ordered 09/02/23 Ordered By: Latasha Davison Referrals: Joseph Miller MD [Primary Care Provider] - Activity Restrictions/Additional Instructions: In addition to anti-inflammatory medication prescribed to you today you may also try ice/heat as well as topical lidocaine cream to help with your discomfort. Your prescription has been E scripted to your preferred pharmacy. Coding Level of Care Code ED Earthmoving Plant Operator for Chg Fwd
== END 2023-09-02 11:04 | disposition home or self-care (01) ==
PROVIDERS: Emergency Provider Physician Assistant; PCP Pediatrics
DX: S83.92XA Sprain of unspecified site of left knee, initial encounter (principal); S33.5XXA Sprain of ligaments of lumbar spine, initial encounter; Z79.84 Long term (current) use of oral hypoglycemic drugs; E11.9 Type 2 diabetes mellitus without complications; I10 Essential (primary) hypertension; X50.9XXA Other and unspecified overexertion or strenuous movements or postures, initial encounter
CPT/HCPCS: 36415; 82085; 82306; 82550; 85651; 99283